=== PATIENT | male | born 1965 | race Native Hawaiian/Other Pacific Islander ===

== ENCOUNTER 2018-02-28 03:58 | Inpatient (IN) | payer BC, OTHER ==
[2018-02-28 04:10] VITALS: BMI 36.0
[2018-02-28] MEDS ORDERED: Albuterol-Ipratrop 3 mg / 0.5 (3 ml) UD IH STA (04:19)
[2018-02-28] MEDS ORDERED: Albuterol 0.083% Inhal Sol (2.5 mg/3 mL) UD INH STA (04:19)
--- NOTE | 2018-02-28 04:24 | ED PDOC ---
Arrival/HPI - General Chief Complaint: Shortness Of Breath Time Seen by Provider: 02/28/18 04:17 Historian: Patient - History of Present Illness Narrative History of Present Illness (Text): 02/28/18 04:28 52 year old male, with a past medical history that includes CHF and hypertension , presents to the emergency department accompanied by complaining of shortness of breath [employer] DESIGN [employer]INE[employer]. Patient is suppose to be taking Amlodipine, Lisinopril , Lasix, and potassium for his heart conditions, but has not taken any of them in over 3 months. Patient also refuses to follow up with outside physicians. Patient's also states he has depression and is not working. Patient states he has had worsening shortness of breath for over a week. Patient also states he is having dysuria, constipation, hemorrhoids, and painful BM. Patient denies any fever, chills, headache, dizziness, cough, abdominal pain, nausea, vomiting, diarrhea, back pain, neck pain, or any other complaint. Time/Duration: Prior to Arrival Symptom Course: Unchanged Quality: Pressure Context: Home Past Medical History - Provider Review Nursing Documentation Reviewed: Yes - Infectious Disease Hx of Infectious Diseases: None - Cardiac Hx Cardiac Disorders: Yes Hx Congestive Heart Failure: Yes Hx Hypertension: Yes - Pulmonary Hx Respiratory Disorders: No - Neurological Hx Neurological Disorder: No - HEENT Hx HEENT Disorder: No - Renal Hx Renal Disorder: No - Endocrine/Metabolic Hx Endocrine Disorders: No Hx Diabetes Mellitus Type 2: Yes - Hematological/Oncological Hx Blood Disorders: No Hx Blood Transfusions: No Hx Blood Transfusion Reaction: No - Integumentary Hx Dermatological Disorder: No - Musculoskeletal/Rheumatological Hx Musculoskeletal Disorders: No Hx Falls: No - Gastrointestinal Hx Gastrointestinal Disorders: No - Genitourinary/Gynecological Hx Genitourinary Disorders: No - Psychiatric Hx Psychophysiologic Disorder: No Hx Anxiety: Yes Hx Substance Use: No - Past Surgical History Past Surgical History: No Previous - Surgical History Hx Cardiac Catheterization: Yes (2 yrs ago) - Anesthesia Hx Anesthesia: No Hx Anesthesia Reactions: No Hx Malignant Hyperthermia: No - Suicidal Assessment Feels Threatened In Home Enviroment: No Family/Social History - Physician Review Nursing Documentation Reviewed: Yes Family/Social History: No Known Family HX Smoking Status: Light Smoker < 10 Cigarettes Daily Hx Alcohol Use: Yes (Socially) Hx Substance Use: No Allergies/Home Meds Allergies/Adverse Reactions: Allergies No Known Allergies Allergy (Verified 08/11/15 04:13) Home Medications: Home Meds Medication Instructions Recorded Confirmed No Known Home Med 02/28/18 02/28/18 Review of Systems - Physician Review All systems were reviewed & negative as marked: Yes - Review of Systems Constitutional: Normal. absent: Fevers, Night Sweats Eyes: Normal ENT: Normal Respiratory: SOB Cardiovascular: Chest Pain Gastrointestinal: Normal, Constipation. absent: Abdominal Pain, Diarrhea, Nausea, Vomiting Genitourinary Male: Dysuria Musculoskeletal: Normal. absent: Back Pain, Neck Pain Skin: Normal Neurological: Normal. absent: Headache, Dizziness Endocrine: Normal Hemo/Lymphatic: Normal Psychiatric: Depression Physical Exam Vital Signs Temp Pulse Resp BP Pulse Ox 02/28/18 06:37 95 H 178/98 H 02/28/18 06:24 97 H 24 173/98 H 100 02/28/18 06:19 184/109 H 02/28/18 06:04 99 H 183/119 H 02/28/18 06:03 108 H 223/115 H 02/28/18 04:38 213/130 H 02/28/18 04:15 24 99 02/28/18 04:00 98.8 F 113 H 22 213/130 H 98 Temperature: Afebrile Blood Pressure: Hypertensive Pulse: Tachycardic Respiratory Rate: Normal Appearance: Positive for: Well-Appearing, Non-Toxic, Comfortable Pain Distress: None Mental Status: Positive for: Alert and Oriented X 3 - Systems Exam Head: Present: Atraumatic, Normocephalic Pupils: Present: PERRL Extroacular Muscles: Present: EOMI Conjunctiva: Present: Normal Mouth: Present: Moist Mucous Membranes Neck: Present: JVD Respiratory/Chest: Present: Rales. No: Accessory Muscle Use Cardiovascular: Present: Other (PMI laterally displaced). No: Murmurs Abdomen: No: Tenderness, Distention, Peritoneal Signs Back: Present: Normal Inspection Upper Extremity: Present: Normal Inspection. No: Cyanosis, Edema Lower Extremity: Present: Normal Inspection. No: Edema Neurological: Present: GCS=15, CN II-XII Intact, Speech Normal Skin: Present: Warm, Dry, Normal Color. No: Rashes Psychiatric: Present: Alert, Oriented x 3, Normal Insight, Normal Concentration Medical Decision Making ED Course and Treatment: 02/28/18 04:46 Impression: 52 year old male presents to the emergency department with shortness of breath Plan: -- Labs -- EKG -- Chest X-ray -- Urinalysis -- Albuterol -- Duoneb -- Lasix -- SOLU-Medrol -- Reassess and disposition Prior Visits: Notes and results from previous visits were reviewed. Progress Notes: 02/28/18 05:09 Chest X-ray reviewed, shows: Cardiomegaly and CHF 02/28/18 05:11 Spoke to the medical receptionist biller and Dr Caterina Vicente who will admit the patient for exacerbation of CHF and noncompliance with his medicine 02/28/18 07:08 EKG: Ordered, reviewed, and independently interpreted the EKG. Rate : 95 BPM Rhythm : NSR Interpretation : possible left atrial enlargement. prolonged QT: 406/510 - Lab Interpretations Lab Results: 02/28/18 04:19 02/28/18 04:14 Lab Results 02/28/18 04:19: Iron 24 L, TIBC 456, % Saturation 5 L 02/28/18 04:19: WBC 9.9 D, RBC 5.18, Hgb 9.6 L, Hct 33.0 L, MCV 63.7 L, MCH 18.5 L, MCHC 29.1 L, RDW 18.4 H, Plt Count 543 H, MPV 9.8, Gran % 75.5 H, Lymph % (Auto) 16.2 L, Rapides % (Auto) 7.0 H, Eos % (Auto) 1.0 L, Baso % (Auto) 0.3, Gran # 7.49 H, Lymph # (Auto) 1.6, Rapides # (Auto) 0.7 H, Eos # (Auto) 0.1, Baso # (Auto) 0.03, Neutrophils % (Manual) 73 H, Band Neutrophils % 2, Lymphocytes % (Manual) 19 L, Monocytes % (Manual) 3, Basophils % (Manual) 3 H, Platelet Evaluation Low, Hypochromasia 2+, Anisocytosis (manual) 1+, Ovalocytes 1+ 02/28/18 04:14: Alcohol, Quantitative < 10 02/28/18 04:14: Sodium 138, Potassium 3.5 L, Chloride 102, Carbon Dioxide 22, Anion Gap 18, BUN 24 H, Creatinine 1.7 H, Est GFR ( Amer) 51, Est GFR ( Non-Af Amer) 43, Random Glucose 166 H, Calcium 8.5, Phosphorus 3.2, Magnesium 2.1, Total Bilirubin 0.8, AST 47, ALT 34, Alkaline Phosphatase 79, Lactate Dehydrogenase 731 H, Total Creatine Kinase 514 H, CK-MB (CK-2) 5.0 H, CK-MB (CK- 2) % 1.0 L, Troponin I 0.03 D, NT-Pro-B Natriuret Pep 3710 H, Total Protein 8.1 , Albumin 4.2, Globulin 3.9, Albumin/Globulin Ratio 1.1 02/28/18 04:14: PT 15.3 H, INR 1.33, D-Dimer, Quantitative 425 H - RAD Interpretation Radiology Orders: 02/28/18 04:19 CHEST PORTABLE [RAD] Stat - Medication Orders Current Medication Orders: Atorvastatin Calcium (Lipitor) 10 mg PO DIN SABA Furosemide (Lasix) 40 mg IVP BID SABA Stop: 03/03/18 23:59 Hydrocortisone (Anusol-Hc) 0 gm KS BID SABA Potassium Chloride (Potassium Chloride Oral Soln) 40 meq PO Q6H SABA Stop: 03/01/18 00:46 Discontinued Medications Albuterol Sulfate (Albuterol 0.083% Inhal Rosemarie (2.5 Mg/3 Ml) Ud) 2.5 mg INH STAT STA Stop: 02/28/18 04:20 Last Admin: 02/28/18 05:01 Dose: 2.5 mg Albuterol/Ipratropium (Duoneb 3 Mg/0.5 Mg (3 Ml) Ud) 3 ml IH STAT STA Stop: 02/28/18 04:20 Last Admin: 02/28/18 04:38 Dose: 3 ml Albuterol/Ipratropium (Duoneb 3 Mg/0.5 Mg (3 Ml) Ud) 3 ml IH Q15M PRN PRN Reason: Shortness of Breath Stop: 02/28/18 06:46 Amlodipine Besylate (Norvasc) 5 mg PO STAT STA Stop: 02/28/18 06:26 Last Admin: 02/28/18 06:37 Dose: 5 mg MAR Pulse and Blood Pressure Document 02/28/18 06:37 SS (Rec: 02/28/18 06:38 SS [id number]) Pulse Pulse Rate (60-90) 95 Blood Pressure Blood Pressure (100/60-150/90) 178/98 Aspirin (Aspirin Chewable) 81 mg PO STAT STA Stop: 02/28/18 06:15 Last Admin: 02/28/18 06:37 Dose: 81 mg Furosemide (Lasix) 40 mg IVP STAT STA Stop: 02/28/18 04:20 Last Admin: 02/28/18 04:38 Dose: 40 mg MAR Blood Pressure Document 02/28/18 04:38 SS (Rec: 02/28/18 04:38 SS [id number]) Blood Pressure Blood Pressure (100/60-150/90) 213/130 IVP Administration Document 02/28/18 04:38 SS (Rec: 02/28/18 04:38 SS [id number]) Charges for Administration # of IVP Administrations 1 Furosemide (Lasix) 20 mg IVP STAT STA Stop: 02/28/18 06:00 Last Admin: 02/28/18 06:19 Dose: 20 mg MAR Blood Pressure Document 02/28/18 06:19 SS (Rec: 02/28/18 06:20 SS [id number]) Blood Pressure Blood Pressure (100/60-150/90) 184/109 IVP Administration Document 02/28/18 06:19 SS (Rec: 02/28/18 06:20 SS [id number]) Charges for Administration # of IVP Administrations 1 Hydralazine HCl (Apresoline) 10 mg IVP STAT SABA Last Admin: 02/28/18 06:04 Dose: 10 mg IVP Administration Document 02/28/18 06:04 SS (Rec: 02/28/18 06:04 SS [id number]) Charges for Administration # of IVP Administrations 1 MAR Pulse and Blood Pressure Document 02/28/18 06:04 SS (Rec: 02/28/18 06:04 SS [id number]) Pulse Pulse Rate (60-90) 99 Blood Pressure Blood Pressure (100/60-150/90) 183/119 Sodium Chloride (Sodium Chloride 0.9%) 500 mls @ 999 mls/hr IV .Q31M STA Stop: 02/28/18 06:19 Last Admin: 02/28/18 06:11 Dose: 999 mls/hr eMAR Start Stop Document 02/28/18 06:11 SS (Rec: 02/28/18 06:11 SS [id number]) Intravenous Solution Start Date 02/28/18 Start Time 06:11 End Date 02/28/18 End time 06:42 Total Infusion Time 31 Methylprednisolone (Solu-Medrol) 125 mg IVP STAT STA Stop: 02/28/18 04:20 Last Admin: 02/28/18 04:38 Dose: 125 mg IVP Administration Document 02/28/18 04:38 SS (Rec: 02/28/18 04:38 SS [id number]) Charges for Administration # of IVP Administrations 1 Metoprolol Tartrate (Lopressor) 5 mg IVP STAT STA Stop: 02/28/18 05:44 Last Admin: 02/28/18 06:03 Dose: 5 mg IVP Administration Document 02/28/18 06:03 SS (Rec: 02/28/18 06:04 SS [id number]) Charges for Administration # of IVP Administrations 1 MAR Pulse and Blood Pressure Document 02/28/18 06:03 SS (Rec: 02/28/18 06:04 SS [id number]) Pulse Pulse Rate (60-90) 108 Blood Pressure Blood Pressure (100/60-150/90) 223/115 Polyethylene Glycol (Miralax) 17 gm PO STAT STA Stop: 02/28/18 06:25 Potassium Chloride (K-Dur 20 Meq Er Tab) 20 meq PO STAT STA Stop: 02/28/18 06:00 Last Admin: 02/28/18 06:11 Dose: 20 meq Tamsulosin HCl (Flomax) 0.4 mg PO STAT STA Stop: 02/28/18 06:24 Last Admin: 02/28/18 06:37 Dose: 0.4 mg - Larissaibe Statement The provider has reviewed the documentation as recorded by the Larissaibfarhana Alvarado All medical record entries made by the Larissaibfarhana were at my direction and personally dictated by me. I have reviewed the chart and agree that the record accurately reflects my personal performance of the history, physical exam, medical decision making, and the department course for this patient. I have also personally directed, reviewed, and agree with the discharge instructions and disposition. Disposition/Present on Arrival - Present on Arrival Any Indicators Present on Arrival: No History of DVT/PE: No History of Uncontrolled Diabetes: No Urinary Catheter: No History of Decub. Ulcer: No History Surgical Site Infection Following: None - Disposition Have Diagnosis and Disposition been Completed?: Yes Diagnosis: Congestive heart failure (CHF), Non-compliance, Dysuria, Rectal pain, chronic, Constipation Disposition: HOSPITALIZED Disposition Time: 05:00 Patient Plan: Admission, Telemetry Patient Problems: Current Active Problems Problem Status Onset Congestive heart failure (CHF) Acute Non-compliance Acute Dysuria Acute Rectal pain, chronic Acute Constipation Acute Condition: FAIR
[2018-02-28 04:34] LABS: BASO # 0.03 K/mm3 (0.0-2.0); BASO % 0.3 % (0.0-3.0); EOS # 0.1 (0.0-0.7); GRAN # 7.49 (1.4-6.5); GRAN % 75.5 % (50.0-68.0); HEMOGLOBIN 9.6 g/dL (14.0-18.0); LYMPH # 1.6 (1.2-3.4); LYMPH % 16.2 % (22.0-35.0); MEAN CELL VOLUME 63.7 fl (80.0-105.0); MEAN CORPUSCULAR HEMOGLOBIN 18.5 pg (25.0-35.0); MEAN CORPUSCULAR HGB CONC 29.1 g/dl (31.0-37.0); MEAN PLATELET VOLUME 9.8 fl (7.0-11.0); MONO # 0.7 (0.1-0.6); PLATELET COUNT 543 10^3/uL (120.0-450.0); RBC 5.18 10^6/uL (3.5-6.1); RED CELL DISTRIBUTION WIDTH 18.4 % (11.5-14.5); WHITE BLOOD COUNT 9.9 10^3/ul (4.5-11.0)
[2018-02-28 04:59] LABS: ALB/GLOB RATIO 1.1 (1.1-1.8); ALBUMIN 4.2 g/dL (3.0-4.8); CALCIUM 8.5 mg/dL (8.4-10.5)
[2018-02-28 05:05] LABS: INR 1.33; PROTHROMBIN TIME 15.3 SECONDS (9.4-12.5)
[2018-02-28 05:12] LABS: PH,URINE 6.5 (4.7-8.0); URINE BILIRUBIN NEGATIVE (NEGATIVE); URINE BLOOD TRACE-INTACT (NEGATIVE); URINE GLUCOSE (UA) NEGATIVE (NEGATIVE); URINE LEUKOCYTE ESTERASE NEGATIVE Leu/uL (NEGATIVE); URINE PROTEIN 100 mg/dL (<30 mg/dL); URINE UROBILINOGEN 0.2 E.U./dL (<1 E.U./dL)
[2018-02-28 05:18] LABS: URINE APPEARANCE CLEAR (CLEAR); URINE COLOR YELLOW (YELLOW)
[2018-02-28 05:24] LABS: TROPONIN I 0.03 ng/mL
[2018-02-28 05:28] LABS: URINE EPITHELIAL CELLS 0 - 2 /hpf (0-5); URINE RBC 0 - 2 /hpf (0-2); URINE WBC 0 - 2 /hpf (0-6)
[2018-02-28] MEDS ORDERED: Metoprolol 1 mg/ml Inj IVP STA (05:43)
[2018-02-28] MEDS ORDERED: Sodium Chloride 0.9% 500 ML IV STA (05:49)
[2018-02-28] MEDS ORDERED: Metoprolol 1 mg/ml Inj IVP ONE (05:49)
[2018-02-28] MEDS ORDERED: Potassium Chloride 20 mEq ER Tab PO STA (05:59)
[2018-02-28 06:06] LABS: BARBITURATES, UR NEGATIVE (NEGATIVE); BENZODIAZEPINES, UR NEGATIVE (NEGATIVE); OPIATES, UR NEGATIVE (NEGATIVE); PHENCYCLIDINE, UR NEGATIVE (NEGATIVE)
[2018-02-28] MEDS ORDERED: Albuterol-Ipratrop 3 mg / 0.5 (3 ml) UD IH PRN (06:14)
[2018-02-28] MEDS ORDERED: POLYETHYLENE GLYCOL 3350 17 GM/Dose PACKET PO STA (06:24)
[2018-02-28] MEDS: Potassium Chloride 40 mEq/30 ml LIQ UD PO SCH ×3 (06:45→17:44)
[2018-02-28 06:52] LABS: IRON 24 ug/dL (45-180)
[2018-02-28 06:56] LABS: BAND 2 % (0-2); BASOPHIL 3 % (0.0-1.0); HYPOCHROMIA 2+; LYMPHOCYTE 19 % (22.0-35.0); MONOCYTE 3 % (1.0-6.0); NEUTROPHIL 73 % (50.0-70.0); PLATELET ESTIMATE LOW (NORMAL)
[2018-02-28 06:57] LABS: ANISOCYTOSIS 1+; OVALOCYTES 1+
[2018-02-28 07:02] LABS: % IRON SATURATION 5 % (20-55); TOTAL IRON BINDING CAPACITY 456 ug/dL (261-462)
--- NOTE | 2018-02-28 07:44 | CP.PCM.HP ---
<Kasi Wang - Last Filed: 02/28/18 09:12> History of Present Illness - History of Present Illness History of Present Illness: Kasi Wang, PGY1, Internal Medicine Resident, H&P for Dr Vicente CC: Shortness of breath for 4 months 52 y/o male with PMH HTN, CHF,TIA, depression presents to ED for 4 month h/o shortness of breath at rest and with exertion. Patient denies diaphoresis, palpitations, nausea, vomiting, syncope, abdominal pain, leg swelling. He also reports PND and orthopnea. Patient did not his a doctor and non compliant with his medications for a long time. Patient admits to having chronic constipation for many months, experience very hard stool with bleeding per rectum and painful hemorrhoids for a long time but never seek medical advice. Patient admit to stimulant drug abuse 4 month ago but he quit and and still have withdrawal symptoms of anxiety, restlessness, irritability. Patient has been at home depressed, with very limited physical activity at home and feels general fatigue and muscle weakness. He also stated that he has difficulty urination with hesitation and burning sensation and difficulty to initiate urination. Denies chills, headache, calf pain, dizziness, visual changes, sick contacts, recent travel. 12 point ROS performed and negative other than stated above. In ED: hypertensive 213/113, trop 0.03, BNP 3710, CK 514. CXR shows cardiomegaly. given lasix 40 mg IV x1, Solu-medrol 125, Morphine 4mg EKG shows S tachy @112, QTc 477, with LA enlargement PMH: HTN, CHF, TIA PSH: Med: denied taking any neds All: NKDA FH: SH: heavy smoker 1ppd x 20 years. h/o methamphetamine use. denied alcohol use. Lives with . Present on Admission - Present on Admission Any Indicators Present on Admission: No Review of Systems - Constitutional Constitutional: Anorexia, Daytime Sleepiness, Snoring, Weakness. absent: Headache - EENT Eyes: Diplopia, Irritation, Loss of Peripheral Vision Ears: absent: Ear Pain, Dizziness Nose/Mouth/Throat: absent: Nasal Congestion, Nasal Trauma, Dry Mouth, Dysphagia - Cardiovascular Cardiovascular: Orthopnea, Paroxysmal Nocturnal Dyspnea. absent: Diaphoresis, Leg Edema, Pedal Edema - Respiratory Respiratory: Cough, Dyspnea on Exertion. absent: Dyspnea, Chest Congestion - Gastrointestinal Gastrointestinal: Constipation, Hematochezia, Temesmus. absent: Coffee Ground Emesis - Genitourinary Genitourinary: Change in Urinary Stream, Difficulty Urinating, Dysuria, Urinary Frequency, Urinary Hesitance, Urinary Urgency, Voiding Freq/Small Amts - Musculoskeletal Musculoskeletal: Atrophy, Muscle Weakness, Myalgias - Integumentary Integumentary: absent: Hirsutism, Lesions, Rash - Neurological Neurological: absent: Burning Sensations, Dizziness, Numbness, Radicular Pain, Syncope, Tingling, Tremor - Psychiatric Psychiatric: Anhedonia, Anxiety, Depression, Difficulty Concentrating, Hopelessness - Endocrine Endocrine: absent: Polydipsia, Polyphagia - Hematologic/Lymphatic Hematologic: Easy Bleeding, Easy Bruising Past Patient History - Infectious Disease Hx of Infectious Diseases: None - Past Social History Smoking Status: Light Smoker < 10 Cigarettes Daily Alcohol: None Drugs: Methamphetamine Home Situation {Lives}: With Family - CARDIAC Hx Cardiac Disorders: Yes Hx Congestive Heart Failure: Yes Hx Hypertension: Yes - PULMONARY Hx Respiratory Disorders: No - NEUROLOGICAL Hx Neurological Disorder: No - HEENT Hx HEENT Problems: No - RENAL Hx Chronic Kidney Disease: No - ENDOCRINE/METABOLIC Hx Endocrine Disorders: No Hx Diabetes Mellitus Type 2: Yes - HEMATOLOGICAL/ONCOLOGICAL Hx Blood Disorders: No Hx Blood Transfusions: No Hx Blood Transfusion Reaction: No - INTEGUMENTARY Hx Dermatological Problems: No - MUSCULOSKELETAL/RHEUMATOLOGICAL Hx Musculoskeletal Disorders: No Hx Falls: No - GASTROINTESTINAL Hx Gastrointestinal Disorders: No - GENITOURINARY/GYNECOLOGICAL Hx Genitourinary Disorders: No - PSYCHIATRIC Hx Psychophysiologic Disorder: No Hx Anxiety: Yes Hx Substance Use: No - SURGICAL HISTORY Hx Cardiac Catheterization: Yes (2 yrs ago) - ANESTHESIA Hx Anesthesia: No Hx Anesthesia Reactions: No Hx Malignant Hyperthermia: No Meds Allergies/Adverse Reactions: Allergies Allergy/AdvReac Type Severity Reaction Status Date / Time No Known Allergies Allergy Verified 08/11/15 04:13 Physical Exam - Constitutional Appears: Non-toxic, No Acute Distress - Head Exam Head Exam: ATRAUMATIC, NORMAL INSPECTION, NORMOCEPHALIC - Eye Exam Eye Exam: EOMI, Normal appearance, PERRL Pupil Exam: NORMAL ACCOMODATION, PERRL - ENT Exam ENT Exam: Mucous Membranes Moist, Normal Exam - Neck Exam Neck exam: Positive for: Normal Inspection - Respiratory Exam Respiratory Exam: Clear to Auscultation Bilateral, NORMAL BREATHING PATTERN - Cardiovascular Exam Cardiovascular Exam: Tachycardia, REGULAR RHYTHM, +S1, +S2 - GI/Abdominal Exam GI & Abdominal Exam: Normal Bowel Sounds, Soft. absent: Organomegaly, Pulsatile Mass, Tenderness - Rectal Exam Rectal Exam: Deferred (patient anxious at this time) - Extremities Exam Extremities exam: Positive for: normal inspection, pedal pulses present. Negative for: calf tenderness, pedal edema, tenderness - Back Exam Back exam: NORMAL INSPECTION - Neurological Exam Neurological exam: Alert, CN II-XII Intact, Oriented x3, Reflexes Normal - Skin Skin Exam: Dry, Intact, Normal Color, Warm Results - Vital Signs Recent Vital Signs: Last Vital Signs Temp 98.8 F 02/28/18 04:00 Pulse 95 H 02/28/18 06:37 Resp 24 02/28/18 06:24 BP 178/98 H 02/28/18 06:37 Pulse Ox 100 02/28/18 06:24 - Labs Result Diagrams: 02/28/18 07:50 02/28/18 07:50 Labs: Laboratory Results - last 24 hr 02/28/18 02/28/18 04:55 04:55 Urine Color Yellow Urine Appearance Clear Urine pH 6.5 Ur Specific Sherwood 1.020 Urine Protein 100 H Urine Glucose (UA) Negative Urine Ketones Negative Urine Blood Trace-intact H Urine Nitrate Negative Urine Bilirubin Negative Urine Urobilinogen 0.2 Ur Leukocyte Esterase Negative Urine RBC 0 - 2 Urine WBC 0 - 2 Ur Epithelial Cells 0 - 2 Urine Opiates Screen Negative Urine Methadone Screen Negative Ur Barbiturates Screen Negative Ur Phencyclidine Scrn Negative Ur Amphetamines Screen Negative U Benzodiazepines Scrn Negative U Oth Cocaine Metabols Negative U Cannabinoids Screen Positive H - EKG Data EKG Interpreted by: ER Physician EKG shows normal: Sinus rhythm, QRS complexes Rate: Tachycardia Assessment & Plan - Assessment and Plan (Free Text) Assessment: 52 y/o male with PMH HTN, CHF,TIA, depression admitted for 4 month h/o shortness of breath at rest and with exertion. In ED found to be hypertensive 213/113, trop 0.03, BNP 3710, CK 514. CXR shows cardiomegaly. EKG shows S tachy @112, QTc 477, with LA enlargement. Admitted for CHF exacerbation. Plan: 1) CHF EXACERBATION -EKG: shows S tachy @112, QTc 477, with LA enlargement -Trop 0.03 x1 will trend -BNP 3710 -CK 514 -CXR shows cardiomegaly -Duoneb given. then prn -Solu-medrol 125 given -Lasix 40 mg IVP given. will give 40 mg BID IVP -cardio cnsulted -Echo (2015) EF 30% -Echo ordered -HbA1c order -O2 NC prn -I&O. daily weight 2) HTN urgency -BP 213/113 -Medication non compliance -Monitor BP in Tele -Hold metoprolol for CHF -Norvasc 5 mg -Continue monitor BP and adjust meds accordingly -ASA 81 -Lipitor 10 -Lipid panel ordered 3)Chronic constipation/hemorrhoid -H/O painful, bleeding hemorrhoids associated with chronic constipation -Rectal exam deferred, patient anxious at time of exam -Miralax -Anusole ointment - 4)Dysurea/ urinary symptoms -Bladder scan -UA -U Cx -Flomax 0.4 mg given daily 5)History of substance abuse/ Depression -h/o methamphetamine use. experiencing withdrawal symptoms. -Severe depression -UA -Urine tox -Psych consulted, recs appreciated DVT ppx SCD Fall precautions. muscle weakness Physical therapy eval/treat. muscle weakness, deconditioning Heart healthy diet Case discussed and reviewed with Dr Jules Wang D.O PGY-1 - Date & Time Date: 02/28/18 Time: 05:30 <Delia Vicente - Last Filed: 03/01/18 07:05> Results - Vital Signs Recent Vital Signs: Last Vital Signs Temp 97.7 F 03/01/18 06:00 Pulse 87 03/01/18 06:00 Resp 19 03/01/18 06:00 BP 127/75 03/01/18 06:00 Pulse Ox 95 03/01/18 06:00 - Labs Result Diagrams: 02/28/18 07:50 02/28/18 07:50 Labs: Laboratory Results - last 24 hr 02/28/18 02/28/18 02/28/18 06:00 07:50 07:50 WBC RBC Hgb Hct MCV MCH MCHC RDW Plt Count MPV Gran % Lymph % (Auto) Lawrence % (Auto) Eos % (Auto) Baso % (Auto) Gran # Lymph # (Auto) Lawrence # (Auto) Eos # (Auto) Baso # (Auto) Retic Count 1.94 H Sodium 141 Potassium 3.2 L Chloride 102 Carbon Dioxide 23 Anion Gap 19 BUN 23 H Creatinine 2.1 H Est GFR ( Amer) 40 Est GFR (Non-Af Amer) 33 Random Glucose 142 H Hemoglobin A1c 6.1 Calcium 8.9 Phosphorus 2.7 Magnesium 2.0 Total Bilirubin 1.1 AST 48 ALT 25 Alkaline Phosphatase 90 Troponin I 0.04 D Total Protein 9.4 H Albumin 4.9 H Globulin 4.5 Albumin/Globulin Ratio 1.1 02/28/18 07:50 WBC 11.4 H RBC 5.68 Hgb 10.7 L Hct 35.9 L MCV 63.2 L MCH 18.8 L MCHC 29.8 L RDW 18.6 H Plt Count 561 H MPV 9.7 Gran % 94.1 H Lymph % (Auto) 5.0 L Lawrence % (Auto) 0.6 L Eos % (Auto) 0.0 L Baso % (Auto) 0.3 Gran # 10.73 H Lymph # (Auto) 0.6 L Lawrence # (Auto) 0.1 Eos # (Auto) 0.0 Baso # (Auto) 0.03 Retic Count Sodium Potassium Chloride Carbon Dioxide Anion Gap BUN Creatinine Est GFR ( Amer) Est GFR (Non-Af Amer) Random Glucose Hemoglobin A1c Calcium Phosphorus Magnesium Total Bilirubin AST ALT Alkaline Phosphatase Troponin I Total Protein Albumin Globulin Albumin/Globulin Ratio Attending/Attestation - Attestation I have personally seen and examined this patient.: Yes I have fully participated in the care of the patient.: Yes I have reviewed all pertinent clinical information: Yes
[2018-02-28 08:01] LABS: BASO # 0.03 K/mm3 (0.0-2.0); BASO % 0.3 % (0.0-3.0); GRAN # 10.73 (1.4-6.5); GRAN % 94.1 % (50.0-68.0); HEMOGLOBIN 10.7 g/dL (14.0-18.0); LYMPH # 0.6 (1.2-3.4); MEAN CELL VOLUME 63.2 fl (80.0-105.0); MEAN CORPUSCULAR HEMOGLOBIN 18.8 pg (25.0-35.0); MEAN CORPUSCULAR HGB CONC 29.8 g/dl (31.0-37.0); MEAN PLATELET VOLUME 9.7 fl (7.0-11.0); MONO # 0.1 (0.1-0.6); MONO % 0.6 % (1.0-6.0); RBC 5.68 10^6/uL (3.5-6.1); RED CELL DISTRIBUTION WIDTH 18.6 % (11.5-14.5); WHITE BLOOD COUNT 11.4 10^3/ul (4.5-11.0)
[2018-02-28 08:09] LABS: ALB/GLOB RATIO 1.1 (1.1-1.8); ALBUMIN 4.9 g/dL (3.0-4.8); CALCIUM 8.9 mg/dL (8.4-10.5)
[2018-02-28 08:19] LABS: TROPONIN I 0.04 ng/mL
--- NOTE | 2018-02-28 09:16 | RAD ---
Date of service: 02/28/2018 HISTORY: Dyspnea COMPARISON: 08/11/2015 FINDINGS: LUNGS: No active pulmonary disease. PLEURA: No significant pleural effusion identified, no pneumothorax apparent. CARDIOVASCULAR: Moderate cardiomegaly OSSEOUS STRUCTURES: No significant abnormalities. VISUALIZED UPPER ABDOMEN: Normal. OTHER FINDINGS: None. IMPRESSION: No active disease.
[2018-02-28] MEDS ORDERED: Potassium Chloride 20 mEq ER Tab PO ONE (09:33)
[2018-02-28] MEDS ORDERED: Milrinone 20mg/100ml D5W 100 ML IV PRN (09:36)
--- NOTE | 2018-02-28 09:42 | CP.PCM.PCO ---
<Aristeo Gonzales - Last Filed: 02/28/18 09:37> Subjective - Physician Review Subjective (Free Text): Bela White called for acute agitation at 9:25 am. Per nurse, patient has urinary retention and became acutely agitated when assistance was offered. At that point , patient began to yell and be combative. On response, patient did not want anyone in the room other than his . When confronted patient was now upset that so many people were outside of his room. No psychiatric history was noted per EMR. Ativan 1 mg was ordered for acute agitation. Event was signed out to primary team. <Dominick Knight - Last Filed: 03/01/18 14:08> Attending/Attestation - Attestation I have personally seen and examined this patient.: Yes I have fully participated in the care of the patient.: Yes I have reviewed all pertinent clinical information: Yes
[2018-02-28] MEDS: Digoxin 125 mcg (0.125 mg) Tab PO SCH (10:45)
[2018-02-28] MEDS: Hydrocortisone 2.5% Rectal Cream(30 gm) PR SCH ×2 (10:46→17:43)
[2018-02-28 12:37] LABS: FERRITIN 9.3 ng/mL
--- NOTE | 2018-02-28 12:55 | NM ---
Date of service: 02/28/2018 COMPARISON: 02/28/2018 portable chest TECHNIQUE: 38.4 mCi technetium 99-m DTPA 4.8 mCI technetium 99-m MAA administered intravenously. FINDINGS: VENTILATION COMPONENT: Normal. PERFUSION COMPONENT: Normal. IMPRESSION: Lowprobability ventilation perfusion scan for pulmonary embolism.
--- NOTE | 2018-02-28 12:59 | US ---
HISTORY: Leg pain and swelling. Evaluate for DVT PHYSICIAN(S): You Castle MD. TECHNIQUE: Duplex sonography and color-flow Doppler with graded compression were used to evaluate the deep venous systems of both lower extremities. FINDINGS: The visualized deep venous systems of both lower extremities are sonographically normal and compressible. Normal wave forms and augmentation are seen. There is no sonographic evidence for deep venous thrombosis in the visualized segments of both lower extremities. IMPRESSION: No sonographic evidence for deep venous thrombosis in the visualized segments of both lower extremities.
[2018-02-28] MEDS ORDERED: Pneumococcal 23-Valent Vaccine IM ONE (15:36)
--- NOTE | 2018-02-28 18:53 | CP.PCM.PCO ---
<rAisteo Gonzales - Last Filed: 02/28/18 18:49> Subjective - Physician Review Subjective (Free Text): Nurse contacted me for acute agitation and refusing medications. On assessment, patient stated that he was in pain all over, especially in the left flank and suprapubic area. Patient states that he has been having urinary retention for over a month and needed something to help relieve his urinary retention. On exam , suprapubic tenderness/fullness palpated. 1 mg morphine ordered. Bladder scan showed 331 mL. Heard catheter was placed with 350 mL urine output. <Dominick Knight - Last Filed: 03/01/18 14:08> Attending/Attestation - Attestation I have personally seen and examined this patient.: Yes I have fully participated in the care of the patient.: Yes I have reviewed all pertinent clinical information: Yes
[2018-02-28] MEDS ORDERED: Morphine 2 mg/ml ISec IVP STA (18:54)
--- NOTE | 2018-02-28 19:14 | CON ---
Copied To: Dominick Aceves MD Attending MD: Dominick Aceves MD DATE: 02/28/2018 REASON FOR THE CONSULTATION: Cardiac evaluation, admitted with shortness of breath, decompensated congestive heart failure. BRIEF CLINICAL HISTORY: This is a 52-year-old male with past medical history of dilated cardiomyopathy, nonobstructive coronary artery disease, COPD, renal insufficiency, noncompliance with medication, not taking any medicines for the last 3 months, came into the emergency room with complaint of shortness of breath accompanied by the . is at the bedside. The patient is very much non-cooperative, does not want to give any history, does not want to tell anything, information obtained from the . Though, the patient denies any chest pain with complaint of shortness of breath using 2 to 3 pillows at night, history of orthopnea and PND, no history of pedal edema. PAST MEDICAL HISTORY: Significant for hypertension, documented dilated cardiomyopathy, ejection fraction of 25% on previous cardiac workup. PREVIOUS CARDIAC WORKUP: As follows: The patient had a cardiac catheterization on 06/29/2014 at [facility] ([facility]3] by Dr. Nye, LAD moderate disease 60% to 70%, ejection fraction 25%. The patient had a last echo on 08/11/[address] Umberto Dawn and at that time, the patient had ejection fraction calculated 26%, RV systolic pressure of 52, moderate severe tricuspid regurgitation, moderate pulmonary hypertension reported and mild mitral regurgitation reported. History of cardiac catheterization on 06/29/2014 that is mid LAD disease 60% to 70%, ejection fraction 25% reported. At that time, catheterization done by Dr. Nye on 06/25/2014, history of chronic renal insufficiency, baseline creatinine around 2. The patient had nuclear stress test on , negative myocardial perfusion study, ejection fraction 43%, no ischemia. CURRENT MEDICATIONS: None, the patient is not taking any medicine. REVIEW OF SYSTEMS: As per HPI. PHYSICAL EXAMINATION: VITAL SIGNS: Height of the patient is 5 feet 7 inches, weight of the patient 230 pounds, body mass index 36 kg/m2. Rest of the examination, temperature afebrile, heart rate 86, blood pressure 184/95. HEENT: PERRLA. Extraocular muscles intact. NECK: Supple. No carotid bruits or thyromegaly. CHEST: Clear to auscultation. HEART: S1, S2 regular. ABDOMEN: Soft. EXTREMITIES: Clubbing and cyanosis negative. LABORATORY DATA: Blood workup: WBC 11.5, hemoglobin 10. , hematocrit 35.9, platelet count 561. Chemistry shows sodium 141, potassium 3.2, chloride 102, carbon dioxide 23, anion gap of 19, BUN 23, creatinine 2.1, troponin is 0.04, BNP 3710. EKG shows normal sinus, no acute ST-T changes noted. Chest x-ray, mild congestion. IMPRESSION: A 52-year-old male with past medical history significant for documented dilated cardiomyopathy, ejection fraction of 25% as of on 2013 to 2014, recent stress test in 07/2015, negative ischemia, ejection fraction of 40%, history of cardiac catheterization on 06/29/2014, nonobstructive coronary artery disease, noncompliance with medications, history of chronic kidney disease, not taking medicines for the last 3 months. RECOMMENDATIONS: We will start Lasix, Coreg, and digoxin Saturday, Saturday, and Saturday, low dose and also will get 24 to 48 hours IV Primacor and so we can push more Lasix. We will follow with you. The patient will get benefit from Primacor as increased inotropy as well as renal sufficiency as well as pulmonary hypertension. We will get echo also. Thank you, Dr. Patel, for providing us the opportunity in taking care of the patient, Bruce Dickinson. Dominick Aceves MD
--- NOTE | 2018-02-28 19:55 | CARD ---
APPROVED REPORT Date of service: 02/28/2018 EXAM: Two-dimensional and M-mode echocardiogram with Doppler and color Doppler. INDICATION CHF EXACERBATION 2D DIMENSIONS Left Atrium (2D)5.8 (1.6-4.0cm)IVSd1.4 (0.7-1.1cm) LVDd5.1 (3.9-5.9cm)PWd1.4 (0.7-1.1cm) LVDs4.1 (2.5-4.0cm)FS (%) 19.6 % LVEF (%)40.2 (>50%) M-Mode DIMENSIONS Aortic Root3.40 (2.2-3.7cm)Aortic Cusp Exc.1.70 (1.5-2.0cm) Aortic Valve AoV Peak Iruashpl757.0cm/Carmella Peak GR.11mmHgAI P 1/2 [id number] Mitral Valve MV E Khmgrqyu05.6cm/sMV A Hqclyfjy95.2cm/sE/A ratio1.1 TDI Lateral E' Peak V6.24cm/sMedial E' Peak V3.90cm/sE/Lateral E'11.0 E/Medial E'17.6 Pulmonary Valve PV Peak Pehamyjw29.7cm/sPV Peak Grad.2mmHg Tricuspid Valve TR Peak Jxrjmhxt885ip/sRAP [id number] Peak Gr.52mmHg [id number] LEFT VENTRICLE The left ventricle is normal size. There is mild concentric left ventricular hypertrophy. The systolic function is moderately impaired. There is global hypokinesis of the left ventricle. Transmitral Doppler flow pattern is Grade I-abnormal relaxation pattern. RIGHT VENTRICLE The right ventricle is normal size. There is normal right ventricular wall thickness. The right ventricular systolic function is normal. ATRIA The left atrium is moderately dilated. The right atrium is mildly dilated. AORTIC VALVE The aortic valve is mildly thickened. There is mild to moderate aortic regurgitation. There is no aortic valvular stenosis. MITRAL VALVE The mitral valve is mildly thickened. Mitral regurgitation is mild to moderate. There is no mitral valve stenosis. TRICUSPID VALVE The tricuspid valve is normal in structure. There is mild tricuspid regurgitation. There is moderate to severe pulmonary hypertension. PULMONIC VALVE The pulmonary valve is normal in structure. There is no pulmonic valvular regurgitation. GREAT VESSELS The aortic root is normal in size. The IVC is normal in size and collapses >50% with inspiration. <Conclusion> The left ventricle is normal size. There is mild concentric left ventricular hypertrophy. The systolic function is moderately impaired. There is global hypokinesis of the left ventricle. Transmitral Doppler flow pattern is Grade I-abnormal relaxation pattern. There is mild to moderate aortic regurgitation. Mitral regurgitation is mild to moderate. There is mild tricuspid regurgitation. There is moderate to severe pulmonary hypertension.
--- NOTE | 2018-02-28 20:57 | CARD ---
APPROVED REPORT Date of service: 02/28/2018 EKG Measurement Heart [id number] <Conclusion> Normal sinus rhythm Possible Left atrial enlargement Prolonged QT Abnormal ECG
--- NOTE | 2018-02-28 20:58 | CARD ---
APPROVED REPORT Date of service: 02/28/2018 EKG Measurement Heart [id number] MD [id number] <Conclusion> Poor data quality, interpretation may be adversely affected Sinus tachycardia Possible Left atrial enlargement Borderline ECG
[2018-02-28] MEDS ORDERED: Hydrocortisone 2.5% Rectal Cream(30 gm) PR STA (21:07)
[2018-02-28] MEDS ORDERED: Magnesium Citrate Oral SOL (300 ml) PO ONE (21:07)
[2018-03-01] MEDS: Potassium Chloride 40 mEq/30 ml LIQ UD PO SCH (00:05)
--- NOTE | 2018-03-01 07:37 | CP.PCM.PN ---
<Terence Mendez - Last Filed: 03/01/18 10:02> Subjective - Date & Time of Evaluation Date of Evaluation: 03/01/18 Time of Evaluation: 07:36 - Subjective Subjective: Terence Mendez DO PGY1 Internal Medicine Health Information Director - Hospital Progress Note Pt. seen this AM at bedside. Pt. had code avila called overnight; as well as during the day. He is much more calm today that he is with his at bedside. Pt. is moving bowels well at this time; urinating well at this time. 12 system ROS otherwise unremarkable. Objective - Vital Signs/Intake and Output Vital Signs (last 24 hours): Temp Pulse Resp BP Pulse Ox 97.7 F 87 19 127/75 95 03/01/18 06:00 03/01/18 06:00 03/01/18 06:00 03/01/18 06:00 03/01/18 06:00 Intake and Output: 03/01/18 03/01/18 06:59 18:59 Intake Total 1182 Output Total 800 Balance 382 - Medications Medications: Current Medications Atorvastatin Calcium (Lipitor) 10 mg PO DIN [facility] Last Admin: 02/28/18 17:44 Dose: Not Given Carvedilol (Coreg) 12.5 mg PO BID [facility] Last Admin: 02/28/18 17:44 Dose: Not Given Digoxin (Digoxin) 0.125 mg PO MWF [facility] Last Admin: 02/28/18 10:45 Dose: 0.125 mg Furosemide (Lasix) 40 mg IVP 0800,1400 [facility] Stop: 03/03/18 23:59 Last Admin: 02/28/18 15:08 Dose: Not Given Hydralazine HCl (Apresoline) 10 mg PO QID PRN PRN Reason: for sbp >170 Hydralazine HCl (Apresoline) 25 mg PO BID [facility] Hydrocortisone (Anusol-Hc) 0 gm OH BID [facility] Last Admin: 02/28/18 17:43 Dose: Not Given Milrinone Lactate/Dextrose (Primacor 20mg/100ml D5w) 100 mls @ 6.26 mls/hr IV .[id number] PRN; Protocol; 0.2 MCG/KG/MIN PRN Reason: TITRATE PER MD ORDER Stop: 03/03/18 07:00 Last Admin: 02/28/18 13:13 Dose: 0.2 mcg/kg/min, 6.26 mls/hr Lisinopril (Zestril) 5 mg PO DAILY [facility] Last Admin: 02/28/18 10:45 Dose: 5 mg Spironolactone (Aldactone) 25 mg PO DAILY [facility] Last Admin: 02/28/18 10:45 Dose: 25 mg - Labs Labs: 02/28/18 07:50 02/28/18 07:50 PT 15.3 SECONDS (9.4-12.5) H 02/28/18 04:14 INR 1.33 02/28/18 04:14 Physical Exam - Constitutional Appears: Non-toxic, No Acute Distress - Head Exam Head Exam: ATRAUMATIC, NORMAL INSPECTION, NORMOCEPHALIC - Eye Exam Eye Exam: EOMI, Normal appearance, PERRL Pupil Exam: NORMAL ACCOMODATION, PERRL - ENT Exam ENT Exam: Mucous Membranes Moist, Normal Exam - Neck Exam Neck exam: Positive for: Normal Inspection - Respiratory Exam Respiratory Exam: Clear to Auscultation Bilateral, NORMAL BREATHING PATTERN - Cardiovascular Exam Cardiovascular Exam: Tachycardia, REGULAR RHYTHM, +S1, +S2 - GI/Abdominal Exam GI & Abdominal Exam: Normal Bowel Sounds, Soft. absent: Organomegaly, Pulsatile Mass, Tenderness - Rectal Exam Rectal Exam: Deferred (patient anxious at this time) - Extremities Exam Extremities exam: Positive for: normal inspection, pedal pulses present. Negative for: calf tenderness, pedal edema, tenderness - Back Exam Back exam: NORMAL INSPECTION - Neurological Exam Neurological exam: Alert, CN II-XII Intact, Oriented x3, Reflexes Normal - Skin Skin Exam: Dry, Intact, Normal Color, Warm Assessment and Plan - Assessment and Plan (Free Text) Assessment: 52 y/o male with PMH HTN, CHF,TIA, depression admitted for 4 month h/o shortness of breath at rest and with exertion. In ED found to be hypertensive 213/113, trop 0.03, BNP 3710, CK 514. CXR shows cardiomegaly. EKG shows S tachy @112, QTc 477, with LA enlargement. Admitted for CHF exacerbation. Plan: CHF EXACERBATION - Appears to be euvolemic at this time; VSS; no tele events overnight. - C/w digoxin 0.125 PO MWF - Digoxin level <0.4 - Hold lasix; his Cr has bumped up slightly - Will obtain follow up CXR -Troponins negative -Duoneb PRN -cardio cnsulted -Repeated Echo showed EF of 40% -O2 NC prn -IO: -2800ml /Last 24H -IO: -4000ml since admit HTN urgency -BP 213/113 on admission -Medication non compliance -Normotensive in last 24H -C/w Hydralazine 25mg BID/ 10mg QID PRN -C/w Milrinone drip DAVINA -Cr. increased from 2.1 to 3.8 in last 24H -Most likely 2/2 Diuresis; however patient was exhibiting signs of urinary retention -Holding Lasix 40 BID -Holding Spironolactone 25 QD -Lisinopril 5 QD -Bladder scan showed 331 mL. Heard catheter was placed with 350 mL urine output Chronic constipation/hemorrhoid -H/O painful, bleeding hemorrhoids associated with chronic constipation -Rectal exam deferred, patient anxious at time of exam -Miralax -Anusole ointment History of substance abuse/ Depression -h/o methamphetamine use. experiencing withdrawal symptoms. -Severe depression -Urine tox - Cannabinoid + -Psych consulted, recs appreciated DVT ppx SCD Dispo: Inpatient admission for continued management / treatment of CHF, and urinary retention Patient seen, examined, and discussed at great length w/ attending physician Dominick Rolon DO PGY1 - Internal Medicine Health Information Director - Pager [phone] <Dominick Knight - Last Filed: 03/01/18 14:19> Objective - Vital Signs/Intake and Output Vital Signs (last 24 hours): Temp Pulse Resp BP Pulse Ox 97.1 F L 75 21 131/78 95 03/01/18 12:00 03/01/18 12:00 03/01/18 12:00 03/01/18 12:00 03/01/18 06:00 Intake and Output: 03/01/18 03/01/18 06:59 18:59 Intake Total 1182 Output Total 800 Balance 382 - Medications Medications: Current Medications Atorvastatin Calcium (Lipitor) 10 mg PO DIN [facility] Last Admin: 02/28/18 17:44 Dose: Not Given Carvedilol (Coreg) 12.5 mg PO BID [facility] Last Admin: 03/01/18 10:23 Dose: 12.5 mg Digoxin (Digoxin) 0.125 mg PO F [facility] Last Admin: 02/28/18 10:45 Dose: 0.125 mg Finasteride (Proscar) 5 mg PO DAILY [facility] Last Admin: 03/01/18 13:12 Dose: 5 mg Fluoxetine HCl (Prozac) 10 mg PO DAILY [facility] Last Admin: 03/01/18 13:12 Dose: 10 mg Furosemide (Lasix) 40 mg IVP 0800,1400 [facility] Stop: 03/03/18 23:59 Last Admin: 02/28/18 15:08 Dose: Not Given Hydralazine HCl (Apresoline) 10 mg PO QID PRN PRN Reason: for sbp >170 Hydralazine HCl (Apresoline) 25 mg PO BID [facility] Last Admin: 03/01/18 10:22 Dose: 25 mg Hydrocortisone (Anusol-Hc) 0 gm OH BID [facility] Last Admin: 03/01/18 10:23 Dose: Not Given Milrinone Lactate/Dextrose (Primacor 20mg/100ml D5w) 100 mls @ 6.26 mls/hr IV .[id number] PRN; Protocol; 0.2 MCG/KG/MIN PRN Reason: TITRATE PER MD ORDER Stop: 03/03/18 07:00 Last Admin: 02/28/18 13:13 Dose: 0.2 mcg/kg/min, 6.26 mls/hr Lisinopril (Zestril) 5 mg PO DAILY [facility] Last Admin: 02/28/18 10:45 Dose: 5 mg Lorazepam (Ativan) 0.5 mg PO Q6 PRN; Protocol PRN Reason: Anxiety Pantoprazole Sodium (Protonix Ec Tab) 40 mg PO 0600 [facility] Spironolactone (Aldactone) 25 mg PO DAILY [facility] Last Admin: 02/28/18 10:45 Dose: 25 mg Tamsulosin HCl (Flomax) 0.4 mg PO DAILY [facility] Last Admin: 03/01/18 13:12 Dose: 0.4 mg - Labs Labs: 03/01/18 07:50 03/01/18 07:50 PT 15.3 SECONDS (9.4-12.5) H 02/28/18 04:14 INR 1.33 02/28/18 04:14 Attending/Attestation - Attestation I have personally seen and examined this patient.: Yes I have fully participated in the care of the patient.: Yes I have reviewed all pertinent clinical information, including history, physical exam and plan: Yes Notes (Text): 03/01/18 14:12 Medical record note made by the resident after discussion with my direction and input after the patient was personally seen and examined by me 52 y/o male with PMH HTN, CHF with systolic dysfunction, depression, drug abuse and non compliance with medication was admitted with H/O shortness of breath at rest and with exertion. In ED found to be hypertensive 213/113, trop 0.03, BNP 3710, D dimer was elevated.Patient creatinin was 1.7.Venous doppler was negative for DVT and V /Q scan is low probability for PE.Patient was started on IV lasix, and milrinone infusion for CHF.He had good diuresis yesterday.Dyspnea is improved but patient has developed acute renal failure due to Over diuresis.We will hold lasix/lisinopril and spironolactone.We will get Nephrology consult.Echo was reviewed , has EF 40% and moderate to severe Pulmonary HTN. Prognosis is guarded due to non compliance and ongoing drug abuse.
[2018-03-01 08:23] LABS: ALB/GLOB RATIO 1.1 (1.1-1.8); ALBUMIN 4.2 g/dL (3.0-4.8); CALCIUM 8.9 mg/dL (8.4-10.5)
[2018-03-01 08:26] LABS: BASO # 0.01 K/mm3 (0.0-2.0); BASO % 0.1 % (0.0-3.0); GRAN # 16.62 (1.4-6.5); GRAN % 88.9 % (50.0-68.0); HEMOGLOBIN 10.5 g/dL (14.0-18.0); LYMPH # 0.9 (1.2-3.4); LYMPH % 4.5 % (22.0-35.0); MEAN CELL VOLUME 62.9 fl (80.0-105.0); MEAN CORPUSCULAR HEMOGLOBIN 18.6 pg (25.0-35.0); MEAN CORPUSCULAR HGB CONC 29.6 g/dl (31.0-37.0); MEAN PLATELET VOLUME 9.6 fl (7.0-11.0); MONO # 1.2 (0.1-0.6); MONO % 6.5 % (1.0-6.0); RBC 5.64 10^6/uL (3.5-6.1); RED CELL DISTRIBUTION WIDTH 18.7 % (11.5-14.5); WHITE BLOOD COUNT 18.7 10^3/ul (4.5-11.0)
--- NOTE | 2018-03-01 10:12 | US ---
Date of service: 03/01/2018 PROCEDURE: Ultrasound of the Kidneys HISTORY: R/o hydronephrosis COMPARISON: Comparison made with prior abdominal ultrasound dated 06/25/2014. TECHNIQUE: Sonogram of the kidneys. FINDINGS: RIGHT KIDNEY: Measures: 10.0 x 5.5 x 4.4 cm. Normal in size, contour and echogenicity. No stone, solid mass lesion or hydronephrosis visualized. LEFT KIDNEY: Measures: 9.9 x 4.9 x 4.7 cm. Normal in size, contour and echogenicity. No stone, solid mass lesion or hydronephrosis visualized. OTHER FINDINGS: None. IMPRESSION: No evidence of shadowing renal calculi or hydronephrosis.
[2018-03-01] MEDS: Hydrocortisone 2.5% Rectal Cream(30 gm) PR SCH ×2 (10:23→18:02)
--- NOTE | 2018-03-01 13:02 | RAD ---
Date of service: 02/28/2018 HISTORY: MD order COMPARISON: No prior. FINDINGS: BOWEL: Normal. No obstruction. No gross free intraperitoneal air seen under the diaphragmatic surfaces. BONES: Normal. OTHER FINDINGS: No definitive abnormal calcifications IMPRESSION: No evidence of acute mechanical bowel obstruction.
--- NOTE | 2018-03-01 13:15 | RAD ---
Date of service: 03/01/2018 HISTORY: CHF COMPARISON: Comparison chest 02/28/2018 FINDINGS: LUNGS: Poor inspiration with low lung volumes, crowded bronchovascular markings and mild bibasilar atelectasis. . PLEURA: No significant pleural effusion identified, no pneumothorax apparent. CARDIOVASCULAR: Heart appears enlarged OSSEOUS STRUCTURES: No significant abnormalities. VISUALIZED UPPER ABDOMEN: Normal. OTHER FINDINGS: None. IMPRESSION: Poor inspiration with low lung volumes, crowded bronchovascular markings and mild bibasilar atelectasis. .
[2018-03-01] MEDS ORDERED: Sodium Chloride 0.9% 1,000 ML IV SCH (21:00)
--- NOTE | 2018-03-02 02:23 | CON ---
Copied To: Jean-Paul Peace MD Attending MD: Jean-Paul Peace MD DATE: 03/01/2018 NEPHROLOGY CONSULTATION HISTORY OF PRESENT ILLNESS: A 52-year-old male with past medical history of hypertension, CHF with systolic dysfunction, status post TIA, depression, presented to the ED with dyspnea since the past 4 months. Nephrology is being consulted for acute kidney injury. The patient is poor historian, only nodding to questions and getting agitated at times. History taken hardly from who was present. Per , the patient has been having increased shortness of breath since the past 4 months but never followed up with any physician and came to the ED yesterday after feeling somewhat scared. She does report that the only medication he has been taking is Aleve up to 4 times per day for nonspecific pain in his abdomen and other areas. The patient otherwise reports that he has been eating well. Denies any nausea, vomiting or diarrhea. Per , he has been having difficulty with urination, has also been constipated. The patient otherwise with no chest pain or palpitations. PAST MEDICAL HISTORY: As above. SOCIAL HISTORY: The patient using methamphetamine also with 20-pack per year smoking history. FAMILY HISTORY: Unclear. REVIEW OF SYSTEMS: CONSTITUTIONAL: No change in appetite. HEENT: Denies any upper respiratory symptoms other than cough. RESPIRATORY: Cough. CARDIOVASCULAR: Increased dyspnea. GI: As per HPI. : As per HPI. MUSCULOSKELETAL: Nonspecific aches and pains. PSYCHIATRIC: History of depression. Denies any suicidality. PHYSICAL EXAMINATION VITAL SIGNS: This morning, blood pressure 127/75, heart rate 87, respiration 19, temperature 97.7, O2 sat 95% on room air. GENERAL: Lying comfortably in bed, not in any acute distress. HEENT: Moist mucous membranes. Nonicteric. No cervical lymphadenopathy. RESPIRATORY: Lungs with mild rales, no respiratory distress. CARDIOVASCULAR: Heart sounds somewhat distant. No obvious murmurs, rubs or gallops. The patient otherwise comfortable lying flat without any supplemental O2. GI: Abdomen soft, nontender, nondistended. : Heard in place draining urine. SKIN: Warm. No cyanosis. EXTREMITIES: No significant lower leg edema. PSYCHIATRIC: Agitated at times. NEUROLOGIC: No numbness of feet. No obvious tremor of hands at rest. LABORATORY DATA: CBC: WBC 18.7, hemoglobin 10.5, hematocrit 35.5, platelets 536. Chemistry panel: Sodium 140, potassium 4.4, chloride 99, bicarb 28, BUN 52, creatinine 3.8 increased from 2.1 yesterday. Glucose 160, calcium 8.9, albumin 4.2. Iron studies, iron 24, TIBC 456, percent saturation 5%, ferritin 9.3. TSH 2.31. Urine studies, urine sodium 8, urine creatinine 340, urine protein 100 mg/dL. Echo report from yesterday showing EF of 40%, improved from 25% previously reported. Also mentioning global hypokinesis of LV grade 1 abnormal relaxation pattern, mild to moderate aortic regurgitation, mild to moderate mitral regurgitation, moderate to severe pulmonary hypertension. ASSESSMENT AND PLAN: 1. Acute kidney injury on chronic kidney disease III. Exact baseline renal function unclear as last creatinine available was 1.3 baseline back in 2016. The patient placed on IV diuretics as well as inotropic support with milrinone for congestive heart failure symptoms, however, unclear if the patient was actually volume overloaded as his x-ray appeared from presentation, is relatively clear without significant pulmonary vascular congestion. Furthermore, the patient is very comfortable lying flat without any supplemental oxygen; therefore, acute kidney injury is likely of prerenal etiology in the setting of aggressive diuresis as well as loss of autoregulation after being given a dose of Toradol. The patient may also have an element of normotensive acute tubular necrosis due to blood pressure being lowered rapidly. Recommendations; agree with holding further diuretics, holding milrinone, giving 1 liter normal saline at 100 cc per hour, hold hydralazine and lisinopril, need to avoid all nephrotoxic agents (NSAIDs, phosphate enema, etc.) 2. Congestive heart failure with systolic dysfunction, as noted above unclear if the patient was actually volume overloaded on presentation, holding diuretics as above, should wait until renal function has improved to baseline before restarting YURIDIA inhibitor. 3. Proteinuria 100 mg/dL on urinalysis which was seen on previous admission as well, goes against simple cardiorenal etiology of chronic kidney disease. We will obtain random urine for protein, creatinine, microalbumin. We will obtain serologic workup for proteinuric kidney disease. 4. Urinary retention likely due to enlarged prostate, although no imaging available. We will restart Flomax 0.4 mg daily and finasteride at 5 mg daily. 5. Constipation. Need to avoid nephrotoxic agents as well as drugs that can rapidly accumulate renal failure such as magnesium citrate. Should use mineral oil enema if needed; can use lactulose or MiraLax for laxative. Thank you for this referral. We will be following up closely. Jean-Paul Peace MD
[2018-03-02] MEDS: Pantoprazole 40 mg EC Tab PO SCH (06:01)
[2018-03-02 08:05] LABS: EOS # 0.1 (0.0-0.7); EOS % 0.4 % (1.5-5.0); GRAN # 13.38 (1.4-6.5); GRAN % 86.8 % (50.0-68.0); HEMOGLOBIN 9.7 g/dL (14.0-18.0); LYMPH % 6.5 % (22.0-35.0); MEAN CELL VOLUME 63.2 fl (80.0-105.0); MEAN CORPUSCULAR HEMOGLOBIN 18.2 pg (25.0-35.0); MEAN CORPUSCULAR HGB CONC 28.9 g/dl (31.0-37.0); MEAN PLATELET VOLUME 10.2 fl (7.0-11.0); MONO % 6.3 % (1.0-6.0); RBC 5.32 10^6/uL (3.5-6.1); RED CELL DISTRIBUTION WIDTH 18.6 % (11.5-14.5); WHITE BLOOD COUNT 15.4 10^3/ul (4.5-11.0)
[2018-03-02 08:07] LABS: ALB/GLOB RATIO 0.9 (1.1-1.8); ALBUMIN 3.1 g/dL (3.0-4.8); ALT/SGPT 28 U/L (7-56); AST/SGOT 37 U/L (17-59); BLOOD UREA NITROGEN 47 mg/dL (7-21); CALCIUM 7.7 mg/dL (8.4-10.5); GFR AFRICAN-AMERICAN 32; GFR NON-AFRICAN AMERICAN 26
--- NOTE | 2018-03-02 08:39 | CP.PCM.PN ---
<Terence Mendez - Last Filed: 03/02/18 10:15> Subjective - Date & Time of Evaluation Date of Evaluation: 03/02/18 Time of Evaluation: 08:39 - Subjective Subjective: Terence Mendez DO PGY1 - Internal Medicine Lead Nitrate Processor - Hospital Progress Note Pt. seen at bedside w/ present. No issues reported overnight by nursing. Pt. complaining of horton discomfort. Pt. notified of improving cr; Pt. and educated that he should sit upright during meals to avoid aspiration/ reflux. Will consider Voiding trial once 24H urine is completed. 12 system ROS otherwise negative. Objective - Vital Signs/Intake and Output Vital Signs (last 24 hours): Temp Pulse Resp BP Pulse Ox 98.4 F 89 20 130/85 96 03/02/18 06:00 03/02/18 06:00 03/02/18 06:00 03/02/18 06:00 03/02/18 06:00 Intake and Output: 03/02/18 03/02/18 06:59 18:59 Intake Total 420 Output Total 500 Balance -80 - Medications Medications: Current Medications Atorvastatin Calcium (Lipitor) 10 mg PO DIN [facility] Last Admin: 03/01/18 18:02 Dose: 10 mg Carvedilol (Coreg) 12.5 mg PO BID [facility] Last Admin: 03/01/18 18:02 Dose: 12.5 mg Digoxin (Digoxin) 0.125 mg PO MWF [facility] Last Admin: 02/28/18 10:45 Dose: 0.125 mg Finasteride (Proscar) 5 mg PO DAILY [facility] Last Admin: 03/01/18 13:12 Dose: 5 mg Fluoxetine HCl (Prozac) 10 mg PO DAILY [facility] Last Admin: 03/01/18 13:12 Dose: 10 mg Furosemide (Lasix) 40 mg IVP 0800,1400 [facility] Stop: 03/03/18 23:59 Last Admin: 02/28/18 15:08 Dose: Not Given Hydralazine HCl (Apresoline) 10 mg PO QID PRN PRN Reason: for sbp >170 Hydralazine HCl (Apresoline) 25 mg PO BID [facility] Last Admin: 03/01/18 10:22 Dose: 25 mg Hydrocortisone (Anusol-Hc) 0 gm MI BID [facility] Last Admin: 03/01/18 18:02 Dose: Not Given Milrinone Lactate/Dextrose (Primacor 20mg/100ml D5w) 100 mls @ 6.26 mls/hr IV .[id number] PRN; Protocol; 0.2 MCG/KG/MIN PRN Reason: TITRATE PER MD ORDER Stop: 03/03/18 07:00 Last Admin: 02/28/18 13:13 Dose: 0.2 mcg/kg/min, 6.26 mls/hr Iron Sucrose 100 mg/ Sodium (Chloride) 105 mls @ 210 mls/hr IVPB DAILY [facility] Stop: 03/05/18 10:29 Last Admin: 03/01/18 22:38 Dose: 210 mls/hr Lisinopril (Zestril) 5 mg PO DAILY [facility] Last Admin: 02/28/18 10:45 Dose: 5 mg Lorazepam (Ativan) 0.5 mg PO Q6 PRN; Protocol PRN Reason: Anxiety Last Admin: 03/01/18 21:25 Dose: 0.5 mg Pantoprazole Sodium (Protonix Ec Tab) 40 mg PO 0600 [facility] Last Admin: 03/02/18 06:01 Dose: 40 mg Spironolactone (Aldactone) 25 mg PO DAILY [facility] Last Admin: 02/28/18 10:45 Dose: 25 mg Tamsulosin HCl (Flomax) 0.4 mg PO DAILY [facility] Last Admin: 03/01/18 13:12 Dose: 0.4 mg - Labs Labs: 03/02/18 06:30 03/02/18 06:30 PT 15.3 SECONDS (9.4-12.5) H 02/28/18 04:14 INR 1.33 02/28/18 04:14 Physical Exam - Constitutional Appears: Non-toxic, No Acute Distress - Head Exam Head Exam: ATRAUMATIC, NORMAL INSPECTION, NORMOCEPHALIC - Eye Exam Eye Exam: EOMI, Normal appearance, PERRL Pupil Exam: NORMAL ACCOMODATION, PERRL - ENT Exam ENT Exam: Mucous Membranes Moist, Normal Exam - Neck Exam Neck exam: Positive for: Normal Inspection - Respiratory Exam Respiratory Exam: Clear to Auscultation Bilateral, NORMAL BREATHING PATTERN - Cardiovascular Exam Cardiovascular Exam: Tachycardia, REGULAR RHYTHM, +S1, +S2 - GI/Abdominal Exam GI & Abdominal Exam: Normal Bowel Sounds, Soft. absent: Organomegaly, Pulsatile Mass, Tenderness - Rectal Exam Rectal Exam: Deferred (patient anxious at this time) - Extremities Exam Extremities exam: Positive for: normal inspection, pedal pulses present. Negative for: calf tenderness, pedal edema, tenderness - Back Exam Back exam: NORMAL INSPECTION - Neurological Exam Neurological exam: Alert, CN II-XII Intact, Oriented x3, Reflexes Normal - Skin Skin Exam: Dry, Intact, Normal Color, Warm Assessment and Plan - Assessment and Plan (Free Text) Assessment: 52 y/o male with PMH HTN, CHF,TIA, depression admitted for 4 month h/o shortness of breath at rest and with exertion. In ED found to be hypertensive 213/113, trop 0.03, BNP 3710, CK 514. CXR shows cardiomegaly. EKG shows S tachy @112, QTc 477, with LA enlargement. Admitted for CHF exacerbation. Plan: CHF EXACERBATION - Still euvolemic at this time; no chest pain or signs of fluid overload - C/w digoxin 0.125 PO MWF - Digoxin level <0.4 yesterday - Holding diuretics in setting of DAVINA - Follow up CXR with poor inspiration/ low lung oclume, crowded bronchovascular markings, and mild atelectasis -Troponins negative -Duoneb PRN -cardio consulted -Repeated Echo showed EF of 40% -O2 NC prn -IO: +720ml/24H -IO: -2924 since admit HTN urgency -BP 213/113 on admission; Medication non compliance -Normotensive in last 24H -BP rx on hold as per nephrology at this time Anemia -Microcytic in nature -Iron low; TIBC normal; % saturation low -Follow up with GI out pt for maintenance colonoscopy DAVINA- Improving -Cr. increased from 3.8 to 2.6 in last 24H -Most likely 2/2 Diuresis; however patient was exhibiting signs of urinary retention -Bladder scan showed 331 mL. Horton catheter was placed with 350 mL urine output -Started flomax -Started Finasteride -Holding Lasix 40 BID -Holding Spironolactone 25 QD -Holding Lisinopril 5 QD -Renal US wnl -UA with proteinuria -Nephrology following Chronic constipation/hemorrhoid -H/O painful, bleeding hemorrhoids associated with chronic constipation -Rectal exam deferred, patient anxious at time of exam -Miralax -Anusole ointment History of substance abuse/ Depression -h/o methamphetamine use. experiencing withdrawal symptoms. -Severe depression -Urine tox - Cannabinoid + -Increased to Prozac 20 QD -Started valium 5Q12 PRN -Psych consulted, recs appreciated DVT ppx SCD Dispo: Inpatient admission for continued management / treatment of CHF, Depression, DAVINA, and urinary retention Patient seen, examined, and discussed at great length w/ attending physician Dominick Rolon DO PGY1 - Internal Medicine Lead Nitrate Processor - Pager [phone] <Dominick Knight - Last Filed: 03/02/18 11:40> Objective - Vital Signs/Intake and Output Vital Signs (last 24 hours): Temp Pulse Resp BP Pulse Ox 98.4 F 80 20 137/70 96 03/02/18 06:00 03/02/18 11:20 03/02/18 06:00 03/02/18 11:20 03/02/18 06:00 Intake and Output: 03/02/18 03/02/18 06:59 18:59 Intake Total 420 Output Total 500 Balance -80 - Medications Medications: Current Medications Atorvastatin Calcium (Lipitor) 10 mg PO DIN [facility] Last Admin: 03/01/18 18:02 Dose: 10 mg Carvedilol (Coreg) 12.5 mg PO BID [facility] Last Admin: 03/02/18 11:20 Dose: 12.5 mg Diazepam (Valium) 5 mg PO Q12 PRN; Protocol PRN Reason: Anxiety Last Admin: 03/02/18 11:17 Dose: 5 mg Digoxin (Digoxin) 0.125 mg PO MWF [facility] Last Admin: 02/28/18 10:45 Dose: 0.125 mg Finasteride (Proscar) 5 mg PO DAILY [facility] Last Admin: 03/02/18 11:17 Dose: 5 mg Fluoxetine HCl (Prozac) 20 mg PO DAILY [facility] Last Admin: 03/02/18 11:19 Dose: 20 mg Furosemide (Lasix) 40 mg IVP 0800,1400 [facility] Stop: 03/03/18 23:59 Last Admin: 02/28/18 15:08 Dose: Not Given Hydralazine HCl (Apresoline) 10 mg PO QID PRN PRN Reason: for sbp >170 Hydralazine HCl (Apresoline) 25 mg PO BID [facility] Last Admin: 08/11/18 10:22 Dose: 25 mg Hydrocortisone (Anusol-Hc) 0 gm MI BID [facility] Last Admin: 03/02/18 11:18 Dose: Not Given Milrinone Lactate/Dextrose (Primacor 20mg/100ml D5w) 100 mls @ 6.26 mls/hr IV .[id number] PRN; Protocol; 0.2 MCG/KG/MIN PRN Reason: TITRATE PER MD ORDER Stop: 03/03/18 07:00 Last Admin: 02/28/18 13:13 Dose: 0.2 mcg/kg/min, 6.26 mls/hr Iron Sucrose 100 mg/ Sodium (Chloride) 105 mls @ 210 mls/hr IVPB DAILY [facility] Stop: 03/05/18 10:29 Last Admin: 03/02/18 11:18 Dose: 210 mls/hr Lisinopril (Zestril) 5 mg PO DAILY [facility] Last Admin: 02/28/18 10:45 Dose: 5 mg Pantoprazole Sodium (Protonix Ec Tab) 40 mg PO 0600 [facility] Last Admin: 03/02/18 06:01 Dose: 40 mg Spironolactone (Aldactone) 25 mg PO DAILY [facility] Last Admin: 02/28/18 10:45 Dose: 25 mg Tamsulosin HCl (Flomax) 0.4 mg PO DAILY [facility] Last Admin: 03/02/18 11:17 Dose: 0.4 mg - Labs Labs: 03/02/18 06:30 03/02/18 06:30 PT 15.3 SECONDS (9.4-12.5) H 02/28/18 04:14 INR 1.33 02/28/18 04:14 Attending/Attestation - Attestation I have personally seen and examined this patient.: Yes I have fully participated in the care of the patient.: Yes I have reviewed all pertinent clinical information, including history, physical exam and plan: Yes Notes (Text): 03/02/18 11:27 Medical record note made by the resident after discussion with my direction and input after the patient was personally seen and examined by me 52 y/o male with PMH HTN, CHF with systolic dysfunction, depression, drug abuse and non compliance with medication was admitted with H/O shortness of breath at rest and with exertion. In ED patient was found to be hypertensive 213/113, trop 0.03, BNP 3710, D dimer was elevated.Patient creatinin was 1.7.Venous doppler was negative for DVT and V /Q scan is low probability for PE.Patient was started on IV lasix, and milrinone infusion for CHF.He had good diuresis but patient has developed acute renal failure due to Over diuresis, Echo showed EF 40% and moderate to severe Pulmonary HTN.May also has underlying sleep apnea. His diuretics were held, was given IV fluid, Creatinin has come down to 2.6 from 3.8.Lung sound are clear. Prognosis is guarded due to non compliance and ongoing drug abuse. Management plan was discussed in detail with patient. Education was provided.
[2018-03-02] MEDS: Hydrocortisone 2.5% Rectal Cream(30 gm) PR SCH ×2 (11:18→17:06)
[2018-03-02 11:45] LABS: COMPLEMENT C4 21.3 mg/dL (14.0-44.0)
[2018-03-02 12:22] LABS: URINE BILIRUBIN NEGATIVE (NEGATIVE); URINE BLOOD SMALL (NEGATIVE); URINE GLUCOSE (UA) NEGATIVE (NEGATIVE); URINE LEUKOCYTE ESTERASE TRACE Leu/uL (NEGATIVE); URINE PROTEIN 30 mg/dL (<30 mg/dL)
[2018-03-02 12:23] LABS: URINE APPEARANCE CLEAR (CLEAR); URINE COLOR YELLOW (YELLOW)
[2018-03-02 12:25] LABS: URINE BACTERIA NEG (NEG); URINE EPITHELIAL CELLS 0 - 2 /hpf (0-5); URINE WBC 0 - 2 /hpf (0-6)
[2018-03-02] MEDS ORDERED: Ergocalciferol 50,000 Intl Units Cap PO SCH (12:45)
--- NOTE | 2018-03-02 15:57 | CON ---
Copied To: Leslie Tiwari MD Attending MD: Leslie Tiwari MD DATE: 03/02/2018 HISTORY OF PRESENT ILLNESS: Patient is a 52-year-old male with history of depression, methamphetamine abuse as well as marijuana use. Psychiatrist is seeing him on the medical floor for depression and restlessness/agitation. I met with the patient at bedside yesterday and reviewed nursing notes overnight and patient appears to be in much better control though still remains depressed. I started Prozac 10 mg daily and Ativan p.r.n. Patient is tolerating Prozac very well and denies any side effects thus far, however, reports that Valium has been more beneficial for him in the past for anxiety and agrees to switch Ativan to Valium today. As noted, the patient is still depressed, however, he denies having any hopelessness or suicidal thoughts. He is coherent, responses are consistent and he is becoming more reactive and spontaneous though affect is overall constricted. Patient denies any perceptual disturbances. He does not appear to be responding to internal stimuli. His is at bedside both days, yesterday and today and continues to confirm the patient's account. Patient is agreeable to increasing dose of Prozac to 20 mg daily and again at bedside I reviewed indications of this medication as well as side effects, therapeutic dosing and therapeutic latency. I also reviewed risks of dependency with Valium as well as respiratory depression when given with other benzos, alcohol, sedatives or opiates and reviewed indications of this medication as well. Both and the patient continued to report understanding and impulse control as well as insight and judgement are improving. Vital signs and labs are reviewed. RELEVANT PSYCHIATRIC MEDICATIONS: Includes Prozac 10 mg daily and Ativan 0.5 mg p.o. every 6 hours daily. IMPRESSION: Major depressive disorder, moderate as well as generalized anxiety disorder; history of methamphetamine abuse as well as cannabis abuse; rule out substance-induced mood disorder. RECOMMENDATIONS: 1. At this time, we will increase Prozac to 20 mg daily, which is minimal therapeutic dose with depression and anxiety. 2. We will switch Ativan 0.5 every 6 hours to Valium 5 mg every 12 hours p.r.n. for the patient's anxiety. 3. Patient is psychiatrically stable at this time. There are no indications for further follow up at this time and this psychiatrist will sign off. Please note when the patient is ultimately medically cleared, he is also psychiatrically cleared and does not require inpatient hospitalization nor does he seems to be interested in this option. Patient should be seen by social work and given a list of mental health facilities that he can follow up to start outpatient treatment. He was also should be given a prescription for Prozac and Valium to last until this followup is arranged. Leslie Tiwari MD : 03/02/2018 10:51:02
--- NOTE | 2018-03-02 19:14 | CP.PCM.PN ---
Subjective - Date & Time of Evaluation Date of Evaluation: 03/01/18 Time of Evaluation: 11:30 - Subjective Subjective: Patient reports feeling weak; sob improved; no nausea/vomiting/diarrhea; Objective - Vital Signs/Intake and Output Vital Signs (last 24 hours): Temp Pulse Resp BP Pulse Ox 97.1 F L 81 21 126/91 H 96 03/02/18 12:00 03/02/18 18:00 03/02/18 12:00 03/02/18 17:44 03/02/18 06:00 - Medications Medications: Current Medications Atorvastatin Calcium (Lipitor) 10 mg PO DIN [facility] Last Admin: 03/02/18 17:44 Dose: 10 mg Carvedilol (Coreg) 12.5 mg PO BID [facility] Last Admin: 03/02/18 17:44 Dose: 12.5 mg Diazepam (Valium) 5 mg PO Q12 PRN; Protocol PRN Reason: Anxiety Last Admin: 03/02/18 11:17 Dose: 5 mg Digoxin (Digoxin) 0.125 mg PO MWF [facility] Last Admin: 02/28/18 10:45 Dose: 0.125 mg Ergocalciferol (Drisdol 50,000 Intl Units Cap) 1 cap PO Q7D [facility] Last Admin: 03/02/18 13:07 Dose: 1 cap Finasteride (Proscar) 5 mg PO DAILY [facility] Last Admin: 03/02/18 11:17 Dose: 5 mg Fluoxetine HCl (Prozac) 20 mg PO DAILY [facility] Last Admin: 03/02/18 11:19 Dose: 20 mg Furosemide (Lasix) 40 mg IVP 0800,1400 [facility] Stop: 03/03/18 23:59 Last Admin: 02/28/18 15:08 Dose: Not Given Hydralazine HCl (Apresoline) 10 mg PO QID PRN PRN Reason: for sbp >170 Hydralazine HCl (Apresoline) 25 mg PO BID [facility] Last Admin: 03/01/18 10:22 Dose: 25 mg Hydrocortisone (Anusol-Hc) 0 gm [place] BID [facility] Last Admin: 03/02/18 17:06 Dose: Not Given Milrinone Lactate/Dextrose (Primacor 20mg/100ml D5w) 100 mls @ 6.26 mls/hr IV .[id number] PRN; Protocol; 0.2 MCG/KG/MIN PRN Reason: TITRATE PER MD ORDER Stop: 03/03/18 07:00 Last Admin: 02/28/18 13:13 Dose: 0.2 mcg/kg/min, 6.26 mls/hr Iron Sucrose 100 mg/ Sodium (Chloride) 105 mls @ 210 mls/hr IVPB DAILY [facility] Stop: 03/05/18 10:29 Last Admin: 03/02/18 11:18 Dose: 210 mls/hr Lisinopril (Zestril) 5 mg PO DAILY [facility] Last Admin: 02/28/18 10:45 Dose: 5 mg Pantoprazole Sodium (Protonix Ec Tab) 40 mg PO 0600 [facility] Last Admin: 03/02/18 06:01 Dose: 40 mg Spironolactone (Aldactone) 25 mg PO DAILY [facility] Last Admin: 02/28/18 10:45 Dose: 25 mg Tamsulosin HCl (Flomax) 0.4 mg PO DAILY [facility] Last Admin: 03/02/18 11:17 Dose: 0.4 mg - Labs Labs: 03/02/18 06:30 03/02/18 06:30 PT 15.3 SECONDS (9.4-12.5) H 02/28/18 04:14 INR 1.33 02/28/18 04:14 - Constitutional Appears: Non-toxic, No Acute Distress - Eye Exam Eye Exam: Normal appearance - ENT Exam ENT Exam: Mucous Membranes Moist - Respiratory Exam Respiratory Exam: Clear to Ausculation Bilateral. absent: Respiratory Distress - Cardiovascular Exam Cardiovascular Exam: RRR, +S1, +S2. absent: Gallop - GI/Abdominal Exam GI & Abdominal Exam: Soft. absent: Distended, Tenderness - Extremities Exam Additional comments: no leg edema; - Neurological Exam Neurological Exam: Alert, Awake - Psychiatric Exam Psychiatric exam: Depressed. absent: Agitated - Skin Skin Exam: Warm. absent: Cyanosis Assessment and Plan (1) Acute kidney injury Assessment & Plan: DAVINA on CKD IIIA; pre-renal etiology, improved after holding diuretics and giving 1L NS overnight; patient tolerating diet, will hold off on further IVF for now; -continue to hold diuretics; -avoid nephrotoxic insults (NSAIDS, phosphate enema); -repeating urine lytes to see if pre-renal state resolved; Status: Acute (2) Congestive heart failure (CHF) Assessment & Plan: With systolic dysfunction; doesn't appear to be decompensated currently; CXR clear on presentation and patient currently asymptomatic, with no edema on exam; -continue to optimize CHF status with B-blockers, YURIDIA inhibitor; holding diuretic for now; Status: Chronic (3) CKD (chronic kidney disease) stage 3, GFR 30-59 ml/min Assessment & Plan: Baseline serum creatinine appears to have been ~1.5 in 2016; very mild proteinuria; serologic workup sent as a precaution, will f/u; Status: Chronic (4) Anemia Assessment & Plan: Mild anemia; some component of iron deficiency; started on IV iron loading, continue; Status: Acute (5) HTN (hypertension) Assessment & Plan: Hypertensive urgency on presentation, possibly due to drug withdrawal; BP currently controlled off anti-htn meds, continue to hold (except for low dose lisinopril); Status: Acute
[2018-03-03] MEDS: Pantoprazole 40 mg EC Tab PO SCH (06:23)
[2018-03-03 06:43] LABS: CREATININE,RANDOM URINE 81 mg/dL
--- NOTE | 2018-03-03 07:03 | CP.PCM.PN ---
Subjective - Date & Time of Evaluation Date of Evaluation: 03/03/18 Time of Evaluation: 06:20 - Subjective Subjective: Easily awaken, denies chest pain, denies shortness of breath Reason for consultation and followup: Cardiac evaluation of shortness of breath , decompensated congestive heart failure Seen and examined by me and Dr. Aceves Objective - Vital Signs/Intake and Output Vital Signs (last 24 hours): Temp Pulse Resp BP Pulse Ox 98.1 F 71 19 114/71 98 03/03/18 06:00 03/03/18 06:00 03/03/18 06:00 03/03/18 06:00 03/03/18 06:00 Intake and Output: 03/02/18 03/03/18 18:59 06:59 Intake Total 660 Output Total 600 Balance 60 - Medications Medications: Current Medications Atorvastatin Calcium (Lipitor) 10 mg PO DIN [facility] Last Admin: 03/02/18 17:44 Dose: 10 mg Carvedilol (Coreg) 12.5 mg PO BID [facility] Last Admin: 03/02/18 17:44 Dose: 12.5 mg Diazepam (Valium) 5 mg PO Q12 PRN; Protocol PRN Reason: Anxiety Last Admin: 03/02/18 23:02 Dose: 5 mg Digoxin (Digoxin) 0.125 mg PO MWF [facility] Last Admin: 02/28/18 10:45 Dose: 0.125 mg Ergocalciferol (Drisdol 50,000 Intl Units Cap) 1 cap PO Q7D [facility] Last Admin: 03/02/18 13:07 Dose: 1 cap Finasteride (Proscar) 5 mg PO DAILY [facility] Last Admin: 03/02/18 11:17 Dose: 5 mg Fluoxetine HCl (Prozac) 20 mg PO DAILY [facility] Last Admin: 03/02/18 11:19 Dose: 20 mg Furosemide (Lasix) 40 mg IVP 0800,1400 [facility] Stop: 03/03/18 23:59 Last Admin: 02/28/18 15:08 Dose: Not Given Hydralazine HCl (Apresoline) 10 mg PO QID PRN PRN Reason: for sbp >170 Hydralazine HCl (Apresoline) 25 mg PO BID [facility] Last Admin: 03/01/18 10:22 Dose: 25 mg Hydrocortisone (Anusol-Hc) 0 gm ME BID [facility] Last Admin: 03/02/18 17:06 Dose: Not Given Milrinone Lactate/Dextrose (Primacor 20mg/100ml D5w) 100 mls @ 6.26 mls/hr IV .[id number] PRN; Protocol; 0.2 MCG/KG/MIN PRN Reason: TITRATE PER MD ORDER Stop: 03/03/18 07:00 Last Admin: 02/28/18 13:13 Dose: 0.2 mcg/kg/min, 6.26 mls/hr Iron Sucrose 100 mg/ Sodium (Chloride) 105 mls @ 210 mls/hr IVPB DAILY [facility] Stop: 03/05/18 10:29 Last Admin: 03/02/18 11:18 Dose: 210 mls/hr Lisinopril (Zestril) 5 mg PO DAILY [facility] Last Admin: 02/28/18 10:45 Dose: 5 mg Pantoprazole Sodium (Protonix Ec Tab) 40 mg PO 0600 [facility] Last Admin: 03/03/18 06:23 Dose: 40 mg Spironolactone (Aldactone) 25 mg PO DAILY [facility] Last Admin: 02/28/18 10:45 Dose: 25 mg Tamsulosin HCl (Flomax) 0.4 mg PO DAILY [facility] Last Admin: 03/02/18 11:17 Dose: 0.4 mg - Labs Labs: 03/02/18 06:30 03/02/18 06:30 PT 15.3 SECONDS (9.4-12.5) H 02/28/18 04:14 INR 1.33 02/28/18 04:14 - Constitutional Appears: No Acute Distress - Eye Exam Eye Exam: Normal appearance - Respiratory Exam Respiratory Exam: Decreased Breath Sounds, NORMAL BREATHING PATTERN - Cardiovascular Exam Cardiovascular Exam: REGULAR RHYTHM, +S1, +S2 - GI/Abdominal Exam GI & Abdominal Exam: Soft, Normal Bowel Sounds - Exam Additional comments: horton catheter - Neurological Exam Neurological Exam: Alert, Awake, Oriented x3 - Psychiatric Exam Psychiatric exam: Normal Affect - Skin Skin Exam: Dry, Intact, Warm Assessment and Plan - Assessment and Plan (Free Text) Assessment: A 52 year old male who came in to the ER due to shortness of breath. History of dilated cardiomyopathy (LVEF 25%)non-obstructive coronary artery disease, COPD , renal insufficiency, hypertension, non copliant with medications. Decompensated congestive heart failure, Started on Primacor drip. Plan: Echo done-LVEF 40 %,systolic function moderately impaired Moderate AR/MR, mild TR, severe pulmonary hypertension On Primacor drip, symptoms improved, Discontinue today On Lipitor 10 mg daily,Coreg 12.5 mg BID,Digoxin 0.125 mg MWF, Lasix 40 mg BID, Apresoline 25 mg BID, Lisinopril 5 mg daily, Aldactone 25 mg daily,Flomax 0.4 mg daily Renal on consult, work up in progress On 24 hour urine collection Continue current treatment Continue current medications Will follow up Plan and treatment discussed with Dr. Aceves
[2018-03-03 07:15] LABS: ALBUMIN 3.1 g/dL (3.0-4.8); CALCIUM 8.1 mg/dL (8.4-10.5)
[2018-03-03 07:21] LABS: BASO # 0.01 K/mm3 (0.0-2.0); BASO % 0.1 % (0.0-3.0); EOS # 0.2 (0.0-0.7); EOS % 1.4 % (1.5-5.0); GRAN # 9.79 (1.4-6.5); GRAN % 76.9 % (50.0-68.0); HEMOGLOBIN 9.7 g/dL (14.0-18.0); LYMPH # 1.6 (1.2-3.4); LYMPH % 12.7 % (22.0-35.0); MEAN CELL VOLUME 63.7 fl (80.0-105.0); MEAN CORPUSCULAR HEMOGLOBIN 18.3 pg (25.0-35.0); MEAN CORPUSCULAR HGB CONC 28.7 g/dl (31.0-37.0); MEAN PLATELET VOLUME 10.3 fl (7.0-11.0); MONO # 1.1 (0.1-0.6); MONO % 8.9 % (1.0-6.0); RBC 5.31 10^6/uL (3.5-6.1); RED CELL DISTRIBUTION WIDTH 18.6 % (11.5-14.5); WHITE BLOOD COUNT 12.7 10^3/ul (4.5-11.0)
--- NOTE | 2018-03-03 08:02 | CP.PCM.PN ---
Subjective - Date & Time of Evaluation Date of Evaluation: 03/03/18 Time of Evaluation: 08:02 - Subjective Subjective: PGY-2 Nephrology Progress Note- Dr. Peace Patient seen and examined at bedside. Per nursing no acute events occurred overnight. Patient denies any chest pain, shortness of breath, fevers, chills, nausea, vomiting, changes in vision, or any other complaints. Objective - Vital Signs/Intake and Output Vital Signs (last 24 hours): Temp Pulse Resp BP Pulse Ox 98.1 F 71 19 114/71 98 03/03/18 06:00 03/03/18 06:00 03/03/18 06:00 03/03/18 06:00 03/03/18 06:00 Intake and Output: 03/03/18 03/03/18 06:59 18:59 Intake Total 660 Output Total 600 Balance 60 - Medications Medications: Current Medications Atorvastatin Calcium (Lipitor) 10 mg PO DIN [facility] Last Admin: 03/02/18 17:44 Dose: 10 mg Carvedilol (Coreg) 12.5 mg PO BID [facility] Last Admin: 03/02/18 17:44 Dose: 12.5 mg Diazepam (Valium) 5 mg PO Q12 PRN; Protocol PRN Reason: Anxiety Last Admin: 03/02/18 23:02 Dose: 5 mg Digoxin (Digoxin) 0.125 mg PO MWF [facility] Last Admin: 02/28/18 10:45 Dose: 0.125 mg Ergocalciferol (Drisdol 50,000 Intl Units Cap) 1 cap PO Q7D [facility] Last Admin: 03/02/18 13:07 Dose: 1 cap Finasteride (Proscar) 5 mg PO DAILY [facility] Last Admin: 03/02/18 11:17 Dose: 5 mg Fluoxetine HCl (Prozac) 20 mg PO DAILY [facility] Last Admin: 03/02/18 11:19 Dose: 20 mg Furosemide (Lasix) 40 mg IVP 0800,1400 [facility] Stop: 03/03/18 23:59 Last Admin: 02/28/18 15:08 Dose: Not Given Hydralazine HCl (Apresoline) 10 mg PO QID PRN PRN Reason: for sbp >170 Hydralazine HCl (Apresoline) 25 mg PO BID [facility] Last Admin: 03/01/18 10:22 Dose: 25 mg Hydrocortisone (Anusol-Hc) 0 gm [place] BID [facility] Last Admin: 03/02/18 17:06 Dose: Not Given Iron Sucrose 100 mg/ Sodium (Chloride) 105 mls @ 210 mls/hr IVPB DAILY [facility] Stop: 03/05/18 10:29 Last Admin: 03/02/18 11:18 Dose: 210 mls/hr Lisinopril (Zestril) 5 mg PO DAILY [facility] Last Admin: 02/28/18 10:45 Dose: 5 mg Pantoprazole Sodium (Protonix Ec Tab) 40 mg PO 0600 [facility] Last Admin: 03/03/18 06:23 Dose: 40 mg Spironolactone (Aldactone) 25 mg PO DAILY [facility] Last Admin: 02/28/18 10:45 Dose: 25 mg Tamsulosin HCl (Flomax) 0.4 mg PO DAILY [facility] Last Admin: 03/02/18 11:17 Dose: 0.4 mg - Labs Labs: 03/03/18 06:00 03/03/18 06:00 PT 15.3 SECONDS (9.4-12.5) H 02/28/18 04:14 INR 1.33 02/28/18 04:14 - Head Exam Head Exam: ATRAUMATIC, NORMAL INSPECTION, NORMOCEPHALIC - Eye Exam Eye Exam: EOMI, Normal appearance, PERRL Pupil Exam: NORMAL ACCOMODATION - ENT Exam ENT Exam: Mucous Membranes Moist, Normal Oropharynx - Respiratory Exam Respiratory Exam: Clear to Ausculation Bilateral, NORMAL BREATHING PATTERN. absent: Prolonged Expiratory Phase, Respiratory Distress - Cardiovascular Exam Cardiovascular Exam: REGULAR RHYTHM, +S1, +S2 - GI/Abdominal Exam GI & Abdominal Exam: Soft, Normal Bowel Sounds. absent: Rigid, Hyperactive Bowel Sounds - Extremities Exam Extremities Exam: Full ROM. absent: Joint Swelling, Pedal Edema - Neurological Exam Neurological Exam: Alert, Awake, CN II-XII Intact - Psychiatric Exam Psychiatric exam: Normal Affect, Normal Mood - Skin Skin Exam: Dry, Intact Assessment and Plan - Assessment and Plan (Free Text) Plan: Assessment and Plan (1) Acute kidney injury Assessment & Plan: DAVINA on CKD IIIA; pre-renal etiology,patient tolerating diet, will hold off on further IVF for now; -continue to hold diuretics; -avoid nephrotoxic insults (NSAIDS, phosphate enema); -repeating urine lytes Nayeli: 9and UCr:81 Status: Acute (2) Congestive heart failure (CHF) Assessment & Plan: With systolic dysfunction; doesn't appear to be decompensation currently; CXR clear on presentation and patient currently asymptomatic, with no edema on exam; -continue to optimize CHF status with B-blockers, YURIDIA inhibitor; holding diuretic for now; Status: Chronic (3) CKD (chronic kidney disease) stage 3, GFR 30-59 ml/min Assessment & Plan: Baseline serum creatinine appears to have been ~1.5 in 2016; very mild proteinuria; serologic workup sent as a precaution received in the laboratory. Will follow up with final results. Status: Chronic (4) Anemia Assessment & Plan: Mild anemia; some component of iron deficiency; started on IV iron loading, continue; Status: Acute (5) HTN (hypertension) Assessment & Plan: Hypertensive urgency on presentation, possibly due to drug withdrawal; BP currently controlled off anti-htn meds, continue to hold (except for low dose lisinopril); Status: Acute Dispo: If patient cleared by Primary Team, patient can be discharged on Aldactone 25mg PO Daily and Lasix 20mg Daily pending voiding trial results and primary team rec's. Patient will be provided information to Dr. Peace's clinic for follow up.
--- NOTE | 2018-03-03 08:13 | CON ---
Copied To: Leslie Tiwari MD Attending MD: Leslie Tiwari MD DATE: 03/01/2018 HISTORY OF PRESENT ILLNESS: The patient is a 52-year-old male with severe depression and prior and current marijuana use. Psychiatry is seeing him in the medical floor due to reports of depression. I reviewed recent notes, which indicated that the patient has been labile, combative, agitated and required acute in the last 24 hours. The patient has been a lot calmer this morning and cooperative during my questioning today. He readily admits that he has been very depressed, though he is not suicidal, he has low energy, he has anhedonia and some of these might contributed by marijuana use, which the patient chronically uses. Records also indicates that the patient has a history of methamphetamine use months ago. The patient continues to be depressed and does not have a history of psychiatric management regarding the medications. However, I discussed with him the possible benefits of medication management at this time with him and his and the patient is in agreement today. I discussed benefits of Prozac 10 mg started today as well as starting Ativan associated with the initiation of Prozac and the patient is in agreement. I discussed the indications, dosing, and therapeutic latency with the patient and today as well. Insight and judgment are improving right now. He is not hallucinating, generally coherent, and responses to relevant questioning, at times he jokes appropriately with this provider, although affect is overall dysthymic. Vital signs and labs were reviewed. Relevant psychiatric medications today is Prozac 10 mg daily, and Ativan 0.5 p.o. every 6 p.r.n. IMPRESSION: Mood disorder, not otherwise specified, likely depression, rule out contribution of major depressive disorder, moderate with substance induced mood disorder. The patient has methamphetamine abuse by history and current cannabis abuse. RECOMMENDATIONS: As noted at this time, we will start Prozac 10 mg daily, and Ativan 0.5 mg every 6 p.r.n. for anxiety and depression. Psychiatry will continue to follow up with patient on the medical floor and monitor his tolerance and reaction to the medication. The patient does not require one-to-one for depression or suicidal thought. We will consider transfer to Psychiatric Unit if he is amenable; however, this is not a necessity at this time. If the patient should be medically cleared, if the patient is also psychiatrically cleared and should be given resources regarding outpatient help the treatment. Psychiatry will continue to follow up while he is hospitalized. Next follow up will be 03/02/2018. Leslie Tiwari MD
[2018-03-03 08:44] LABS: HEPATITIS B SURFACE AG Negative (NEGATIVE)
[2018-03-03] MEDS: Digoxin 125 mcg (0.125 mg) Tab PO SCH (10:16)
[2018-03-03] MEDS: Hydrocortisone 2.5% Rectal Cream(30 gm) PR SCH ×2 (10:17→18:30)
[2018-03-03 10:26] VITALS: PULSE 76
--- NOTE | 2018-03-03 15:55 | CP.PCM.PN ---
<Terence Mendez - Last Filed: 03/03/18 15:50> Subjective - Date & Time of Evaluation Date of Evaluation: 03/03/18 Time of Evaluation: 15:50 - Subjective Subjective: Terence Mendez DO PGY1 Internal Medicine Board Certified Music Therapist - Hospital Progress NOte Patient was seen and examined today at bedside. He was resting comfortably upon exam. Patient was only voicing complaints of horton site pain this AM. Patient will undergo voiding trial. 12 system ROS otherwise negative. Objective - Vital Signs/Intake and Output Vital Signs (last 24 hours): Temp Pulse Resp BP Pulse Ox 98.8 F 84 20 142/92 H 98 03/03/18 12:00 03/03/18 14:00 03/03/18 12:00 03/03/18 15:25 03/03/18 06:00 Intake and Output: 03/03/18 03/03/18 06:59 18:59 Intake Total 660 100 Output Total 600 Balance 60 100 - Medications Medications: Current Medications Atorvastatin Calcium (Lipitor) 10 mg PO DIN [facility] Last Admin: 03/02/18 17:44 Dose: 10 mg Carvedilol (Coreg) 12.5 mg PO BID [facility] Last Admin: 03/03/18 10:19 Dose: 12.5 mg Diazepam (Valium) 5 mg PO Q12 PRN; Protocol PRN Reason: Anxiety Last Admin: 03/03/18 10:29 Dose: 5 mg Digoxin (Digoxin) 0.125 mg PO MWF [facility] Last Admin: 03/03/18 10:16 Dose: 0.125 mg Ergocalciferol (Drisdol 50,000 Intl Units Cap) 1 cap PO Q7D [facility] Last Admin: 03/02/18 13:07 Dose: 1 cap Finasteride (Proscar) 5 mg PO DAILY [facility] Last Admin: 03/03/18 10:16 Dose: 5 mg Fluoxetine HCl (Prozac) 20 mg PO DAILY [facility] Last Admin: 03/03/18 10:17 Dose: 20 mg Furosemide (Lasix) 40 mg IVP 0800,1400 [facility] Stop: 03/03/18 23:59 Last Admin: 02/28/18 15:08 Dose: Not Given Furosemide (Lasix) 40 mg PO 0800,1500 [facility] Last Admin: 03/03/18 15:25 Dose: 40 mg Hydralazine HCl (Apresoline) 10 mg PO QID PRN PRN Reason: for sbp >170 Hydralazine HCl (Apresoline) 25 mg PO BID [facility] Last Admin: 03/01/18 10:22 Dose: 25 mg Hydrocortisone (Anusol-Hc) 0 gm [place] BID [facility] Last Admin: 03/03/18 10:17 Dose: 1 applic Iron Sucrose 100 mg/ Sodium (Chloride) 105 mls @ 210 mls/hr IVPB DAILY [facility] Stop: 03/05/18 10:29 Last Admin: 03/03/18 10:16 Dose: 210 mls/hr Lisinopril (Zestril) 10 mg PO DAILY [facility] Pantoprazole Sodium (Protonix Ec Tab) 40 mg PO 0600 [facility] Last Admin: 03/03/18 06:23 Dose: 40 mg Spironolactone (Aldactone) 25 mg PO DAILY [facility] Last Admin: 02/28/18 10:45 Dose: 25 mg Tamsulosin HCl (Flomax) 0.4 mg PO DAILY [facility] Last Admin: 03/03/18 10:17 Dose: 0.4 mg - Labs Labs: 03/03/18 06:00 03/03/18 06:00 PT 15.3 SECONDS (9.4-12.5) H 02/28/18 04:14 INR 1.33 02/28/18 04:14 Physical Exam - Constitutional Appears: Non-toxic, No Acute Distress - Head Exam Head Exam: ATRAUMATIC, NORMAL INSPECTION, NORMOCEPHALIC - Eye Exam Eye Exam: EOMI, Normal appearance, PERRL Pupil Exam: NORMAL ACCOMODATION, PERRL - ENT Exam ENT Exam: Mucous Membranes Moist, Normal Exam - Neck Exam Neck exam: Positive for: Normal Inspection - Respiratory Exam Respiratory Exam: Clear to Auscultation Bilateral, NORMAL BREATHING PATTERN - Cardiovascular Exam Cardiovascular Exam: Tachycardia, REGULAR RHYTHM, +S1, +S2 - GI/Abdominal Exam GI & Abdominal Exam: Normal Bowel Sounds, Soft. absent: Organomegaly, Pulsatile Mass, Tenderness - Rectal Exam Rectal Exam: Deferred (patient anxious at this time) - Extremities Exam Extremities exam: Positive for: normal inspection, pedal pulses present. Negative for: calf tenderness, pedal edema, tenderness - Back Exam Back exam: NORMAL INSPECTION - Neurological Exam Neurological exam: Alert, CN II-XII Intact, Oriented x3, Reflexes Normal - Skin Skin Exam: Dry, Intact, Normal Color, Warm Assessment and Plan - Assessment and Plan (Free Text) Assessment: 52 y/o male with PMH HTN, CHF,TIA, depression admitted for 4 month h/o shortness of breath at rest and with exertion. In ED found to be hypertensive 213/113, trop 0.03, BNP 3710, CK 514. CXR shows cardiomegaly. EKG shows S tachy @112, QTc 477, with LA enlargement. Admitted for CHF exacerbation. Plan: CHF EXACERBATION - No volume overload; no cardio-pulmonary complaints - C/w digoxin 0.125 PO MWF - Digoxin level <0.4 on 03/01; Will repeat level tomorrow - Resumed Lasix 40 BID - Follow up CXR with poor inspiration/ low lung oclume, crowded bronchovascular markings, and mild atelectasis -Troponins negative -Duoneb PRN -cardio consulted -Repeated Echo showed EF of 40% -O2 NC prn -IO: +60ml / 24H DAVINA- Improving -Cr. increased from 2.6 to 1.9 in last 24H -Most likely 2/2 Diuresis; however patient was exhibiting signs of urinary retention -Bladder scan showed 331 mL. Horton catheter was placed with 350 mL urine output - 24 Hour urine study completed at this time; Horton catheter removed - Patient will undergo voiding trial -c/w Flomax -c/w Finasteride -Resume Lasix 40 BID as per nephro -Holding Spironolactone 25 QD -Holding Lisinopril 5 QD -Renal US wnl -UA with proteinuria -Nephrology following; -Cleared from nephrology standpoint for discharge at this time; Patient is okay to restart CHF medications, continue flomax/ finasteride as outpatient. HTN urgency -BP 213/113 on admission; Medication non compliance -Normotensive in last 24H -BP rx on hold as per nephrology at this time Anemia -Microcytic in nature -Iron low; TIBC normal; % saturation low -Given Iron IV -Follow up with GI out pt for maintenance colonoscopy Chronic constipation/hemorrhoid -H/O painful, bleeding hemorrhoids associated with chronic constipation -Rectal exam deferred, patient anxious at time of exam -Miralax -Anusole ointment History of substance abuse/ Depression -h/o methamphetamine use. experiencing withdrawal symptoms. -Severe depression -Urine tox - Cannabinoid + -Increased to Prozac 20 QD -Started valium 5Q12 PRN -Psych consulted, recs appreciated DVT ppx SCD Dispo: Inpatient admission for continued management / treatment of CHF, Depression, DAVINA, and urinary retention; SW consulted for SHAN replacement Patient seen, examined, and discussed at great length w/ attending physician Dominick Rolon DO PGY1 - Internal Medicine Board Certified Music Therapist - Pager [phone] <Daljit Bryan A - Last Filed: 03/03/18 16:31> Objective - Vital Signs/Intake and Output Vital Signs (last 24 hours): Temp Pulse Resp BP Pulse Ox 98.8 F 84 20 142/92 H 98 03/03/18 12:00 03/03/18 14:00 03/03/18 12:00 03/03/18 15:25 03/03/18 06:00 Intake and Output: 03/03/18 03/03/18 06:59 18:59 Intake Total 660 100 Output Total 600 Balance 60 100 - Medications Medications: Current Medications Atorvastatin Calcium (Lipitor) 10 mg PO DIN [facility] Last Admin: 03/02/18 17:44 Dose: 10 mg Carvedilol (Coreg) 12.5 mg PO BID [facility] Last Admin: 03/03/18 10:19 Dose: 12.5 mg Diazepam (Valium) 5 mg PO Q12 PRN; Protocol PRN Reason: Anxiety Last Admin: 03/03/18 10:29 Dose: 5 mg Digoxin (Digoxin) 0.125 mg PO MWF [facility] Last Admin: 03/03/18 10:16 Dose: 0.125 mg Ergocalciferol (Drisdol 50,000 Intl Units Cap) 1 cap PO Q7D [facility] Last Admin: 03/02/18 13:07 Dose: 1 cap Finasteride (Proscar) 5 mg PO DAILY [facility] Last Admin: 03/03/18 10:16 Dose: 5 mg Fluoxetine HCl (Prozac) 20 mg PO DAILY [facility] Last Admin: 03/03/18 10:17 Dose: 20 mg Furosemide (Lasix) 40 mg PO 0800,1500 [facility] Last Admin: 03/03/18 15:25 Dose: 40 mg Hydralazine HCl (Apresoline) 10 mg PO QID PRN PRN Reason: for sbp >170 Hydralazine HCl (Apresoline) 25 mg PO BID [facility] Last Admin: 03/01/18 10:22 Dose: 25 mg Hydrocortisone (Anusol-Hc) 0 gm [place] BID [facility] Last Admin: 03/03/18 10:17 Dose: 1 applic Iron Sucrose 100 mg/ Sodium (Chloride) 105 mls @ 210 mls/hr IVPB DAILY [facility] Stop: 03/05/18 10:29 Last Admin: 03/03/18 10:16 Dose: 210 mls/hr Lisinopril (Zestril) 10 mg PO DAILY [facility] Pantoprazole Sodium (Protonix Ec Tab) 40 mg PO 0600 [facility] Last Admin: 03/03/18 06:23 Dose: 40 mg Spironolactone (Aldactone) 25 mg PO DAILY [facility] Last Admin: 02/28/18 10:45 Dose: 25 mg Tamsulosin HCl (Flomax) 0.4 mg PO DAILY [facility] Last Admin: 03/03/18 10:17 Dose: 0.4 mg - Labs Labs: 03/03/18 06:00 03/03/18 06:00 PT 15.3 SECONDS (9.4-12.5) H 02/28/18 04:14 INR 1.33 02/28/18 04:14 Attending/Attestation - Attestation I have personally seen and examined this patient.: Yes I have fully participated in the care of the patient.: Yes I have reviewed all pertinent clinical information, including history, physical exam and plan: Yes Notes (Text): 03/03/18 16:27 52 year old male with past medical history of hypertension, systolic CHF, medication noncompliance and substance abuse who presented with shortness of breath. He was started on iv lasix and milrinone infusion for CHF exacerbation with improvement of symptoms. He then developed acute renal failure for which diuretics were held and he was started on iv fluids. His kidney function is improving. Nephrology and cardiology are following the patient and his medications are slowly being resumed. Horton will be discontinued today with voiding trial. Psychiatry evaluation was appreciated as well. He was counselled on risks of continued substance abuse. is also at bedside and questions were answered. Will request PT follow up for d/c planning. Daljit Bryan MD Hospitalist.
[2018-03-04] MEDS: Pantoprazole 40 mg EC Tab PO SCH (05:34)
--- NOTE | 2018-03-04 06:56 | CP.PCM.PN ---
Subjective - Date & Time of Evaluation Date of Evaluation: 03/04/18 Time of Evaluation: 06:15 - Subjective Subjective: Easily awaken, no distress, no shortness of breath Reason for consultation and followup: Cardiac evaluation of shortness of breath , decompensated congestive heart failure Seen and examined by me and Dr. Aceves Objective - Vital Signs/Intake and Output Vital Signs (last 24 hours): Temp Pulse Resp BP Pulse Ox 99.1 F 78 18 149/83 98 03/03/18 22:11 03/03/18 22:11 03/03/18 22:11 03/03/18 22:11 03/03/18 22:11 Intake and Output: 03/03/18 03/04/18 18:59 06:59 Intake Total 1120 800 Output Total 550 Balance 570 800 - Medications Medications: Current Medications Atorvastatin Calcium (Lipitor) 10 mg PO DIN [facility] Last Admin: 03/03/18 18:29 Dose: 10 mg Carvedilol (Coreg) 12.5 mg PO BID [facility] Last Admin: 03/03/18 18:33 Dose: 12.5 mg Diazepam (Valium) 5 mg PO Q12 PRN; Protocol PRN Reason: Anxiety Last Admin: 03/03/18 21:37 Dose: 5 mg Digoxin (Digoxin) 0.125 mg PO MWF [facility] Last Admin: 03/03/18 10:16 Dose: 0.125 mg Ergocalciferol (Drisdol 50,000 Intl Units Cap) 1 cap PO Q7D [facility] Last Admin: 03/02/18 13:07 Dose: 1 cap Finasteride (Proscar) 5 mg PO DAILY [facility] Last Admin: 03/03/18 10:16 Dose: 5 mg Fluoxetine HCl (Prozac) 20 mg PO DAILY [facility] Last Admin: 03/03/18 10:17 Dose: 20 mg Furosemide (Lasix) 40 mg PO 0800,1500 [facility] Last Admin: 03/03/18 15:25 Dose: 40 mg Hydralazine HCl (Apresoline) 10 mg PO QID PRN PRN Reason: for sbp >170 Hydralazine HCl (Apresoline) 25 mg PO BID [facility] Last Admin: 03/01/18 10:22 Dose: 25 mg Hydrocortisone (Anusol-Hc) 0 gm [place] BID [facility] Last Admin: 03/03/18 18:30 Dose: 1 applic Iron Sucrose 100 mg/ Sodium (Chloride) 105 mls @ 210 mls/hr IVPB DAILY [facility] Stop: 03/05/18 10:29 Last Admin: 03/03/18 10:16 Dose: 210 mls/hr Lisinopril (Zestril) 10 mg PO DAILY [facility] Pantoprazole Sodium (Protonix Ec Tab) 40 mg PO 0600 [facility] Last Admin: 03/04/18 05:34 Dose: 40 mg Spironolactone (Aldactone) 25 mg PO DAILY [facility] Last Admin: 02/28/18 10:45 Dose: 25 mg Tamsulosin HCl (Flomax) 0.4 mg PO DAILY [facility] Last Admin: 03/03/18 10:17 Dose: 0.4 mg - Labs Labs: 03/03/18 06:00 03/03/18 06:00 PT 15.3 SECONDS (9.4-12.5) H 02/28/18 04:14 INR 1.33 02/28/18 04:14 - Constitutional Appears: No Acute Distress - Eye Exam Eye Exam: Normal appearance - ENT Exam ENT Exam: Mucous Membranes Moist - Respiratory Exam Respiratory Exam: Decreased Breath Sounds, NORMAL BREATHING PATTERN - Cardiovascular Exam Cardiovascular Exam: +S1, +S2 - GI/Abdominal Exam GI & Abdominal Exam: Soft, Normal Bowel Sounds - Exam Additional comments: horton catheter - Extremities Exam Extremities Exam: Normal Capillary Refill - Neurological Exam Neurological Exam: Alert, Awake, Oriented x3 - Psychiatric Exam Psychiatric exam: Normal Affect - Skin Skin Exam: Dry, Warm Assessment and Plan - Assessment and Plan (Free Text) Assessment: A 52 year old male who came in to the ER due to shortness of breath. History of dilated cardiomyopathy (LVEF 25%)non-obstructive coronary artery disease, COPD , renal insufficiency, hypertension, non compliant with medications. Decompensated congestive heart failure, Started on Primacor drip.ECHO- LVEF 40 % ,systolic function moderately impaired, Moderate AR/MR, mild TR, severe pulmonary hypertension. Primacor discontinued yesterday. Plan: Symptoms improved,Improved clinically, denies shortness of breath Primacor drip siscontinued yesterday On Lipitor 10 mg daily,Coreg 12.5 mg BID,Digoxin 0.125 mg MWF, Lasix 40 mg BID, Apresoline 25 mg BID, Lisinopril 5 mg daily, Aldactone 25 mg daily,Flomax 0.4 mg daily Renal on consult, work up in progress Cardiac status stable Heart rate and blood pressure controlled Continue current treatment Continue current medications Discharge planning Will follow up Plan and treatment discussed with Dr. Aceves
[2018-03-04 07:24] VITALS: BP 134/79; PULSE 82; RESP 20; TEMP 99; O2SAT 100
[2018-03-04 07:32] LABS: BASO # 0.01 K/mm3 (0.0-2.0); BASO % 0.1 % (0.0-3.0); EOS # 0.2 (0.0-0.7); EOS % 1.7 % (1.5-5.0); GRAN # 8.75 (1.4-6.5); GRAN % 73.9 % (50.0-68.0); HEMOGLOBIN 9.8 g/dL (14.0-18.0); LYMPH # 1.9 (1.2-3.4); LYMPH % 15.7 % (22.0-35.0); MEAN CELL VOLUME 63.5 fl (80.0-105.0); MEAN CORPUSCULAR HEMOGLOBIN 18.1 pg (25.0-35.0); MEAN CORPUSCULAR HGB CONC 28.6 g/dl (31.0-37.0); MEAN PLATELET VOLUME 10.1 fl (7.0-11.0); MONO % 8.6 % (1.0-6.0); RBC 5.4 10^6/uL (3.5-6.1); RED CELL DISTRIBUTION WIDTH 18.8 % (11.5-14.5); WHITE BLOOD COUNT 11.8 10^3/ul (4.5-11.0)
[2018-03-04 07:41] LABS: ALBUMIN 3.6 g/dL (3.0-4.8); CALCIUM 8.4 mg/dL (8.4-10.5)
[2018-03-04 08:47] LABS: CREATININE, 24 HOUR URINE 2.35 g/24 h (0.63-2.50)
[2018-03-04] MEDS: Hydrocortisone 2.5% Rectal Cream(30 gm) PR SCH (09:23)
--- NOTE | 2018-03-04 11:00 | CP.PCM.PN ---
Subjective - Date & Time of Evaluation Date of Evaluation: 03/04/18 Time of Evaluation: 11:00 - Subjective Subjective: PGY-2 Nephrology Progress Note- Dr. Peace Patient seen and examined at bedside. Per nursing no acute events occurred overnight. Patient denies any chest pain, shortness of breath, fevers, chills, nausea, vomiting, changes in vision, or any other complaints. Patient was slightly agitated during examination and complete ROS was limited. Objective - Vital Signs/Intake and Output Vital Signs (last 24 hours): Temp Pulse Resp BP Pulse Ox 99 F 82 20 134/79 100 03/04/18 06:00 03/04/18 09:22 03/04/18 06:00 03/04/18 09:23 03/04/18 06:00 Intake and Output: 03/04/18 03/04/18 06:59 18:59 Intake Total 800 Balance 800 - Medications Medications: Current Medications Atorvastatin Calcium (Lipitor) 10 mg PO DIN [facility] Last Admin: 03/03/18 18:29 Dose: 10 mg Carvedilol (Coreg) 12.5 mg PO BID [facility] Last Admin: 03/04/18 09:22 Dose: 12.5 mg Diazepam (Valium) 5 mg PO Q12 PRN; Protocol PRN Reason: Anxiety Last Admin: 03/04/18 09:33 Dose: 5 mg Digoxin (Digoxin) 0.125 mg PO MWF [facility] Last Admin: 03/03/18 10:16 Dose: 0.125 mg Ergocalciferol (Drisdol 50,000 Intl Units Cap) 1 cap PO Q7D [facility] Last Admin: 03/02/18 13:07 Dose: 1 cap Finasteride (Proscar) 5 mg PO DAILY [facility] Last Admin: 03/04/18 09:22 Dose: 5 mg Fluoxetine HCl (Prozac) 20 mg PO DAILY [facility] Last Admin: 03/04/18 09:21 Dose: 20 mg Furosemide (Lasix) 40 mg PO DAILY [facility] Hydralazine HCl (Apresoline) 10 mg PO QID PRN PRN Reason: for sbp >170 Hydralazine HCl (Apresoline) 25 mg PO BID [facility] Last Admin: 03/01/18 10:22 Dose: 25 mg Hydrocortisone (Anusol-Hc) 0 gm WI BID [facility] Last Admin: 03/04/18 09:23 Dose: 1 applic Iron Sucrose 100 mg/ Sodium (Chloride) 105 mls @ 210 mls/hr IVPB DAILY [facility] Stop: 03/05/18 10:29 Last Admin: 03/04/18 09:21 Dose: 210 mls/hr Lisinopril (Zestril) 10 mg PO DAILY [facility] Last Admin: 03/04/18 09:22 Dose: 10 mg Pantoprazole Sodium (Protonix Ec Tab) 40 mg PO 0600 [facility] Last Admin: 03/04/18 05:34 Dose: 40 mg Spironolactone (Aldactone) 25 mg PO DAILY [facility] Last Admin: 03/04/18 09:23 Dose: 25 mg Tamsulosin HCl (Flomax) 0.4 mg PO DAILY [facility] Last Admin: 03/04/18 09:21 Dose: 0.4 mg - Labs Labs: 03/04/18 07:00 03/04/18 07:00 PT 15.3 SECONDS (9.4-12.5) H 02/28/18 04:14 INR 1.33 02/28/18 04:14 - Head Exam Head Exam: ATRAUMATIC, NORMAL INSPECTION - Eye Exam Eye Exam: EOMI, Normal appearance, PERRL Pupil Exam: NORMAL ACCOMODATION - ENT Exam ENT Exam: Mucous Membranes Moist, Normal Exam - Neck Exam Neck Exam: Normal Inspection - Respiratory Exam Respiratory Exam: Rhonchi, NORMAL BREATHING PATTERN. absent: Prolonged Expiratory Phase - Cardiovascular Exam Cardiovascular Exam: +S1, +S2 - GI/Abdominal Exam GI & Abdominal Exam: Soft, Normal Bowel Sounds. absent: Rigid - Neurological Exam Neurological Exam: Alert, Awake, CN II-XII Intact - Psychiatric Exam Psychiatric exam: Depressed - Skin Skin Exam: Dry, Intact, Warm Assessment and Plan - Assessment and Plan (Free Text) Plan: Assessment and Plan (1) Acute kidney injury Assessment & Plan: DAVINA on CKD IIIA; pre-renal etiology,patient tolerating diet, will hold off on further IVF for now; -Diuretics Lasix 40mg PO Daily; -avoid nephrotoxic insults (NSAIDS, phosphate enema); -repeating urine lytes Nayeli: 9and UCr:81 Status: Acute (2) Congestive heart failure (CHF) Assessment & Plan: With systolic dysfunction; doesn't appear to be decompensation currently; CXR clear on presentation and patient currently asymptomatic, with no edema on exam; -continue to optimize CHF status with B-blockers, YURIDIA inhibitor;continue Diuretic; Status: Chronic (3) CKD (chronic kidney disease) stage 3, GFR 30-59 ml/min Assessment & Plan: Improving. Baseline serum creatinine appears to have been ~1.5 in 2016; very mild proteinuria; Serum immunofixation: negative for monoclonal proteins Remaining serologic workup sent as a precaution received in the laboratory. Will follow up with final results. Status: Chronic (4) Anemia Assessment & Plan: Mild anemia; some component of iron deficiency; started on IV iron loading Status: Acute (5) HTN (hypertension) Assessment & Plan: Hypertensive urgency on presentation, possibly due to drug withdrawal; BP currently controlled off anti-htn meds, continue to hold (except for low dose lisinopril); Status: Acute Dispo:Awaiting serologic workup results. DAVINA improving will continue to monitor. Plan discussed with Dr. Nata Blum, PGY-2
[2018-03-04 14:53] LABS: PROTEINASE-3 <1.0 AI (<1.0)
--- NOTE | 2018-03-04 21:29 | CP.PCM.DIS ---
<Terence Mendez - Last Filed: 03/04/18 21:26> Provider - Provider Date of Admission: 03/01/18 07:14 Attending physician: Daljit Bryan MD Primary care physician: NO FAMILY PROVIDER Consults: Nephrology -Nata Psychology - Jossy Cardiology - Kamran Time Spent in preparation of Discharge (in minutes): 40 Diagnosis - Discharge Diagnosis (1) Acute exacerbation of CHF (congestive heart failure) Status: Acute Priority: High (2) Congestive heart failure (CHF) Status: Chronic Priority: High (3) Hypertensive urgency Status: Resolved Priority: High (4) Acute kidney injury Status: Acute Priority: High (5) Urinary retention Status: Acute Priority: High (6) Mood disorder Status: Acute Priority: Medium (7) CKD (chronic kidney disease) stage 3, GFR 30-59 ml/min Status: Acute Priority: High (8) Anemia Status: Chronic Priority: Medium (9) Non-compliance Status: Acute Priority: High (10) Rectal pain, chronic Status: Acute Priority: Low Hospital Course - Lab Results Lab Results: Micro Results 03/04/18 00:30 Stool C. difficile Antigen & Toxin A,B (M - Final 03/02/18 12:11 Urine,Horton Urine Culture - Final No Growth (<1,000 CFU/ML) Most Recent Lab Values WBC 11.8 10^3/ul (4.5-11.0) H 03/04/18 07:00 RBC 5.40 10^6/uL (3.5-6.1) 03/04/18 07:00 Hgb 9.8 g/dL (14.0-18.0) L 03/04/18 07:00 Hct 34.3 % (42.0-52.0) L 03/04/18 07:00 MCV 63.5 fl (80.0-105.0) L 03/04/18 07:00 MCH 18.1 pg (25.0-35.0) L 03/04/18 07:00 MCHC 28.6 g/dl (31.0-37.0) L 03/04/18 07:00 RDW 18.8 % (11.5-14.5) H 03/04/18 07:00 Plt Count 462 10^3/uL (120.0-450.0) H 03/04/18 07:00 MPV 10.1 fl (7.0-11.0) 03/04/18 07:00 Gran % 73.9 % (50.0-68.0) H 03/04/18 07:00 Lymph % (Auto) 15.7 % (22.0-35.0) L 03/04/18 07:00 Mcculloch % (Auto) 8.6 % (1.0-6.0) H 03/04/18 07:00 Eos % (Auto) 1.7 % (1.5-5.0) 03/04/18 07:00 Baso % (Auto) 0.1 % (0.0-3.0) 03/04/18 07:00 Gran # 8.75 (1.4-6.5) H 03/04/18 07:00 Lymph # (Auto) 1.9 (1.2-3.4) 03/04/18 07:00 M[place]ulloch # (Auto) 1.0 (0.1-0.6) H 03/04/18 07:00 Eos # (Auto) 0.2 (0.0-0.7) 03/04/18 07:00 Baso # (Auto) 0.01 K/mm3 (0.0-2.0) 03/04/18 07:00 Neutrophils % (Manual) 73 % (50.0-70.0) H 02/28/18 04:19 Band Neutrophils % 2 % (0-2) 02/28/18 04:19 Lymphocytes % (Manual) 19 % (22.0-35.0) L 02/28/18 04:19 Monocytes % (Manual) 3 % (1.0-6.0) 02/28/18 04:19 Basophils % (Manual) 3 % (0.0-1.0) H 02/28/18 04:19 Platelet Evaluation Low (NORMAL) 02/28/18 04:19 Hypochromasia 2+ 02/28/18 04:19 Anisocytosis (manual) 1+ 02/28/18 04:19 Ovalocytes 1+ 02/28/18 04:19 Retic Count 1.94 % (0.5-1.5) H 02/28/18 06:00 PT 15.3 SECONDS (9.4-12.5) H 02/28/18 04:14 INR 1.33 02/28/18 04:14 D-Dimer, Quantitative 425 mg/L DDU (0-243) H 02/28/18 04:14 Sodium 140 mmol/L (132-148) 03/04/18 07:00 Potassium 3.8 mmol/L (3.6-5.0) 03/04/18 07:00 Chloride 102 mmol/L (98-107) 03/04/18 07:00 Carbon Dioxide 28 mmol/L (21-33) 03/04/18 07:00 Anion Gap 14 (10-20) 03/04/18 07:00 BUN 24 mg/dL (7-21) H 03/04/18 07:00 Creatinine 1.7 mg/dl (0.8-1.5) H 03/04/18 07:00 Est GFR ( Amer) 51 03/04/18 07:00 Est GFR (Non-Af Amer) 43 03/04/18 07:00 POC Glucose (mg/dL) 124 mg/dL (65-110) H 03/04/18 16:01 Random Glucose 106 mg/dL (70-110) 03/04/18 07:00 Hemoglobin A1c 6.1 % (4.2-6.5) 02/28/18 07:50 Calcium 8.4 mg/dL (8.4-10.5) 03/04/18 07:00 Phosphorus 2.7 mg/dL (2.5-4.5) 02/28/18 07:50 Magnesium 2.0 mg/dL (1.7-2.2) 02/28/18 07:50 Iron 24 ug/dL (45-180) L 02/28/18 04:19 TIBC 456 ug/dL (261-462) 02/28/18 04:19 % Saturation 5 % (20-55) L 02/28/18 04:19 Ferritin 9.3 ng/mL 02/28/18 04:19 Total Bilirubin 0.4 mg/dL (0.2-1.3) 03/04/18 07:00 AST 32 U/L (17-59) 03/04/18 07:00 ALT 27 U/L (7-56) 03/04/18 07:00 Alkaline Phosphatase 73 U/L (38-126) 03/04/18 07:00 Lactate Dehydrogenase 731 U/L (333-699) H 02/28/18 04:14 Total Creatine Kinase 514 U/L (35-230) H 02/28/18 04:14 CK-MB (CK-2) 5.0 ng/mL (0.0-3.6) H 02/28/18 04:14 CK-MB (CK-2) % 1.0 % (2.5-3.0) L 02/28/18 04:14 Troponin I 0.04 ng/mL D 02/28/18 07:50 NT-Pro-B Natriuret Pep 3710 pg/mL (0-450) H 02/28/18 04:14 Total Protein 7.2 g/dL (5.8-8.3) 03/04/18 07:00 Total Protein (PEP) 6.2 g/dL (6.1-8.1) 03/02/18 06:30 Albumin 3.6 g/dL (3.0-4.8) 03/04/18 07:00 Globulin 3.5 gm/dL 03/04/18 07:00 Albumin/Globulin Ratio 1.0 (1.1-1.8) L 03/04/18 07:00 Triglycerides 71 mg/dL (35-160) 02/28/18 04:19 Cholesterol 156 mg/dL (130-200) 02/28/18 04:19 LDL Cholesterol Direct 91 mg/dL (0-129) 02/28/18 04:19 HDL Cholesterol 35 mg/dL (29-60) 02/28/18 04:19 25-OH Vitamin D Total < 12.8 NG/ML (30.0-100.0) L 03/02/18 06:30 Procalcitonin 0.10 NG/ML (0.19-0.49) L 03/02/18 07:00 TSH 3rd Generation 2.31 mIU/mL (0.46-4.68) 03/01/18 07:50 PTH Intact Whole Molec 65 pg/mL (14-64) H 03/02/18 07:00 Urine Color Yellow (YELLOW) 03/02/18 12:11 Urine Appearance Clear (CLEAR) 03/02/18 12:11 Urine pH 6.0 (4.7-8.0) 03/02/18 12:11 Ur Specific [place] 1.020 (1.005-1.035) 03/02/18 12:11 Urine Protein 30 mg/dL (<30 mg/dL) H 03/02/18 12:11 Urine Glucose (UA) Negative mg/dL (NEGATIVE) 03/02/18 12:11 Urine Ketones Negative mg/dL (NEGATIVE) 03/02/18 12:11 Urine Blood Small (NEGATIVE) H 03/02/18 12:11 Urine Nitrate Negative (NEGATIVE) 03/02/18 12:11 Urine Bilirubin Negative (NEGATIVE) 03/02/18 12:11 Urine Urobilinogen 1.0 E.U./dL (<1 E.U./dL) H 03/02/18 12:11 Ur Leukocyte Esterase Trace Adela/uL (NEGATIVE) H 03/02/18 12:11 Urine RBC 2 - 5 /hpf (0-2) 03/02/18 12:11 Urine WBC 0 - 2 /hpf (0-6) 03/02/18 12:11 Ur Epithelial Cells 0 - 2 /hpf (0-5) 03/02/18 12:11 Urine Bacteria Neg (NEG) 03/02/18 12:11 Ur Random Creatinine 81 mg/dL 03/03/18 05:30 U Random Total Protein 192 mg/g creat (22-128) H 03/01/18 13:25 Ur Random Sodium 9 meq/L 03/03/18 05:30 Ur Random Urea Nitrogn 347 mg/dL 03/01/18 13:25 Urine Creatinine 1.52 g/L 03/02/18 00:00 Ur Creatinine 24 Hour 2.35 g/24 h (0.63-2.50) 03/02/18 00:00 Urine Total Volume 26.7 mg/dL 03/01/18 13:25 Microalb/Creat Ratio 71 (<30) H 03/01/18 13:25 Ur Total Protein 24 Hr 718 mg/24 h (<150) H 03/02/18 00:00 Protein/Creat Ratio 24h 305 mg/g creat (</=84) H 03/02/18 00:00 Urine Total Protein 463 mg/L (50-250) H 03/02/18 00:00 Digoxin 0.8 ng/mL (0.8-2.0) 03/04/18 07:00 Urine Opiates Screen Negative (NEGATIVE) 02/28/18 04:55 Urine Methadone Screen Negative (NEGATIVE) 02/28/18 04:55 Ur Barbiturates Screen Negative (NEGATIVE) 02/28/18 04:55 Ur Phencyclidine Scrn Negative (NEGATIVE) 02/28/18 04:55 Ur Amphetamines Screen Negative (NEGATIVE) 02/28/18 04:55 U Benzodiazepines Scrn Negative (NEGATIVE) 02/28/18 04:55 U Oth Cocaine Metabols Negative (NEGATIVE) 02/28/18 04:55 U Cannabinoids Screen Positive (NEGATIVE) H 02/28/18 04:55 Alcohol, Quantitative < 10 mg/dL (0-10) 02/28/18 04:14 Serum Immunofixation Not detected (Not Detected) 03/02/18 06:30 TAY Screen Negative (Negative) 03/02/18 06:30 TAY Titer TEST NOT PERFORMED 03/02/18 06:30 TAY Titer 2 TEST NOT PERFORMED 03/02/18 06:30 TAY Pattern TEST NOT PERFORMED 03/02/18 06:30 TAY Pattern 2 TEST NOT PERFORMED 03/02/18 06:30 Proteinase 3 (PR3) <1.0 AI (<1.0) 03/02/18 06:30 Myeloperoxidase Ab <1.0 AI (<1.0) 03/02/18 06:30 Glomerular Base Mem IgG <1.0 AI (<1.0) 03/02/18 06:30 Complement C3 79.0 mg/dL (88.0-165.0) L 03/02/18 06:30 Complement C4 21.3 mg/dL (14.0-44.0) 03/02/18 06:30 RPR Nonreactive (NONREACTIVE) 03/02/18 06:30 Hep Bs Antigen Negative (NEGATIVE) 03/02/18 06:30 Hepatitis C Antibody Negative (NEGATIVE) 03/02/18 06:30 HIV 1&2 Antibody Screen Negative (NEGATIVE) 03/02/18 06:30 - Hospital Course Hospital Course: Terence Mendez DO PGY1 Internal Medicine Field Placement Director - Hospital Discharge Summary 52 year old male with history of CHF, HTN, dilated cardiomyopathy, cardiac catheterization, COPD, substance abuse, medication noncompliance and renal insufficiency presented to [facility] [place] [place] ED on 02/28/18 with shortness of breath. Patient was found to have acute CHF exacerbation due to medication noncompliance. Upon admission, troponin was negative and BNP (3710) and D dimer was elevated as well as BP 213/113. In ED, EKG showed sinus tachycardia, and chest x-ray showed moderate cardiomegaly. Urine tox screen was positive for cannabinoids. DVT was ruled out with lower extremity ultrasound and lung scan nuclear medicine was negative for PE. patient subsequently started on Lasix, and hydralazine. Due to his cardiac history, echo was ordered and showed EF of 40% along with mild concentric left ventricular hypertrophy, global hypokinesis of the left ventricle and mild to moderate aortic regurgitation and pulmonary hypertension. Code margarita was called twice as the patient was agitated due to suprapubic pain in the setting of urinary retention, and left flank pain. Patient was given ativan 1 mg, and horton catheter was inserted. Cardiology service (Dr. Aceves) started continued the patient on lasix, and started milinrone drip, coreg, lisinopril spironolactone, and digoxin. Nephrology (Dr. Peace) was consulted due his to his rising BUN and creatinine levels. Renal ultrasound was ordered to rule out hydronephrosis but was unremarkable. Subsequently, patient was started on flomax and finasteride. Hospital course was complicated when patient developed acute kidney injury most likely due to diuresis; subsequently lasix, lisinopril and spironolactone were held and gentle IVF was started. Due to his substance abuse history, psychiatry (Dr. Tiwari) was consulted and diagnosed him with mood disorder most likely depression. Patient was started on ativan and prozac, and subsequently ativan was replaced w/ valium. The patient developed microcytic anemia due to iron deficiency so IV iron was given. The patient was restarted on his lasix by nephrology after his kidney function improved. Horton was removed, however voiding trial revealed patient was still retaining ~200- 300mls urine. Chest x-ray is clear and the patient is asymptomatic with no edema and lungs clear to auscultation b/l. The patient denied SHAN and inpatient psych admission. The patient is hemodynamically stable and clear for discharge. He denies any chest pain, SOB, fevers, chills, nausea, vomiting, or any other complaints. The patient was counseled to continue his medications due to his history of medication noncompliance. Morning of discharge patient was encouraged to participate in PT who recommended patient placement to home w/ family support. No other issues voiced at time of evaluation in morning. VSS; no issues reported overnight. Patient reported freely urinating however bladder scan still showing some retention. Patient was stable for discharge and following discharge instructions were provided: - You were admitted for worsening of your heart failure and high blood pressure due to not taking your medications - During your hospital course you had some kidney injury; and were found to have significant urinary retention - Please take all your medications as prescribed below - Please start taking: Atorvastatin/ Lipitor 10mg every day Carvedilol/ Coreg 12.5mg twice a day Digoxin 0.125 one tab every Saturday, Saturday, Saturday Ergocalciferol 50,000units 1 cap every WEEK Finasteride/ Proscar 5mg every day Fluoxetine/ Prozac 20mg every day Furosemide/ Lasix 40mg every day Lisinopril/ Zestril 10mg every day Tamsulosin/ Flomax 0.4mg 1 tab every day for 3 days followed by 2 tabs a day - Please catheterize yourself as needed when you start feeling urinary discomfort, suprapubic pain, - Please buy a scale and check our weight every day, and record your weights - Please buy a Blood pressure cuff and check your pressures every morning and evening; please record your blood pressures - If you have greater than 3 pound weight increase in a day please call your primary care doctor immediately - You stated your primary doctor is Dr. Benito, and that you have not seen him in over one year. Please follow up with him within 7 days of discharge - If you would not like to see Dr. Benito, please call the number on the back of your insurance card and arrange for a primary care doctor - If you would like to follow up with our clinic here please request for Wendy Yost MD as your new primary care doctor - You were started on a anti-depressant medication; this medication may cause side effect of suicidal ideations - Please get a complete blood count and basic metabolic panel within 7 days of discharge - Please follow up with Psychiatry Dr. Tiwari within 7 days of discharge - Please follow up with Cardiology Dominick Yung within 7 days of discharge - Please follow up with Nephrology Dr. Peace within 7 days of discharge - Please follow up with a Urologist Dr. Zepeda after discharge, a referral for one has been provided for you; or you can find one within your insurance network - Please follow up with a [facility] Dr. Mejia regarding Colonoscopy, a referral for one has been provided for you; or you can find one within your insurance network - If you experience any worsening of symptoms, suicidal ideation, or if any new concerning symptoms arise; please go to the nearest emergency department Patient is medically optimized for discharge at this time - Date & Time of H&P Date of H&P: 02/28/18 Time of H&P: 07:24 Discharge Exam - Head Exam Head Exam: ATRAUMATIC, NORMAL INSPECTION, NORMOCEPHALIC - Eye Exam Eye Exam: EOMI, PERRL. absent: Scleral icterus - ENT Exam ENT Exam: Mucous Membranes Moist Additional comments: Very poor oral dentition - Respiratory Exam Respiratory Exam: Clear to PA & Lateral, NORMAL BREATHING PATTERN, UNREMARKABLE. absent: Rhonchi, Wheezes, Respiratory Distress - Cardiovascular Exam Cardiovascular Exam: RRR, +S1, +S2. absent: Systolic Murmur - GI/Abdominal Exam GI & Abdominal Exam: Normal Bowel Sounds, Unremarkable. absent: Soft, Tenderness Additional comments: No suprapubic tenderness or flank pain noted on exam. - Rectal Exam Additional comments: Hemorrhoids present - Extremities Exam Additional comments: Pulses 2+ TP/DP BL No LE Edema - Back Exam Back exam: absent: CVA tenderness (L), CVA tenderness (R) - Neurological Exam Neurological exam: Alert, CN II-XII Intact - Psychiatric Exam Psychiatric exam: Flat Affect Additional comments: Patient withdrawn; refuses to make eye contact; difficult to interview. No suicidal ideation/ homicidal ideation reported. - Skin Skin Exam: Dry, Intact, Normal Color, Warm Discharge Plan - Discharge Medications Prescriptions: Atorvastatin [Lipitor] 10 mg PO DIN #30 tab Carvedilol [Coreg] 12.5 mg PO BID #60 tab diaZEpam [Valium] 5 mg PO Q12 PRN #10 tab PRN Reason: Agitation Digoxin 0.125 mg PO MWF #12 tab Ergocalciferol [Drisdol 50,000 Intl Units Cap] 1 cap PO Q7D #4 cap Finasteride [Proscar] 5 mg PO DAILY #30 tab FLUoxetine [Prozac] 20 mg PO DAILY #30 cap Furosemide [Lasix] 40 mg PO DAILY #30 tab Lisinopril [Zestril] 10 mg PO DAILY #30 tab Spironolactone [Aldactone] 25 mg PO DAILY #30 tab Tamsulosin [Flomax] 0.4 mg PO DAILY #3 cap Tamsulosin [Flomax] 0.4 mg PO BID #54 cap - Follow Up Plan Condition: FAIR Disposition: HOME/ ROUTINE Patient education suggested?: Yes Instructions: Heart Failure (ED) Additional Instructions: - You were admitted for worsening of your heart failure and high blood pressure due to not taking your medications - During your hospital course you had some kidney injury; and were found to have significant urinary retention - Please take all your medications as prescribed below - Please start taking: Atorvastatin/ Lipitor 10mg every day Carvedilol/ Coreg 12.5mg twice a day Digoxin 0.125 one tab every Saturday, Saturday, Saturday Ergocalciferol 50,000units 1 cap every WEEK Finasteride/ Proscar 5mg every day Fluoxetine/ Prozac 20mg every day Furosemide/ Lasix 40mg every day Lisinopril/ Zestril 10mg every day Tamsulosin/ Flomax 0.4mg 1 tab every day for 3 days followed by 2 tabs a day - Please catheterize yourself as needed when you start feeling urinary discomfort, suprapubic pain, - Please buy a scale and check our weight every day, and record your weights - Please buy a Blood pressure cuff and check your pressures every morning and evening; please record your blood pressures - If you have greater than 3 pound weight increase in a day please call your primary care doctor immediately - You stated your primary doctor is Dr. Benito, and that you have not seen him in over one year. Please follow up with him within 7 days of discharge - If you would not like to see Dr. Benito, please call the number on the back of your insurance card and arrange for a primary care doctor - If you would like to follow up with our clinic here please request for Wendy Yost MD as your new primary care doctor - You were started on a anti-depressant medication; this medication may cause side effect of suicidal ideations - Please get a complete blood count and basic metabolic panel within 7 days of discharge - Please follow up with Psychiatry Dr. Tiwari within 7 days of discharge - Please follow up with Cardiology Dominick Yung within 7 days of discharge - Please follow up with Nephrology Dr. Peace within 7 days of discharge - Please follow up with a Urologist Dr. Zepeda after discharge, a referral for one has been provided for you; or you can find one within your insurance network - Please follow up with a [facility] Dr. Mejia regarding Colonoscopy, a referral for one has been provided for you; or you can find one within your insurance network - If you experience any worsening of symptoms, suicidal ideation, or if any new concerning symptoms arise; please go to the nearest emergency department Referrals: Dominick Aceves MD [Staff Provider] - Elva Mejia MD [Medical Doctor] - Mal Suazo MD [Staff Provider] - Jean-Paul Peace MD [Staff Provider] - Bea Zepeda MD [Staff Provider] - <Daljit Bryan - Last Filed: 03/05/18 07:56> Provider - Provider Date of Admission: 03/01/18 07:14 Attending physician: Daljit Bryan MD Primary care physician: [facility] Hospital Course - Lab Results Lab Results: Micro Results 03/04/18 00:30 Stool C. difficile Antigen & Toxin A,B (M - Final 03/02/18 12:11 Urine,Horton Urine Culture - Final No Growth (<1,000 CFU/ML) Most Recent Lab Values WBC 11.8 10^3/ul (4.5-11.0) H 03/04/18 07:00 RBC 5.40 10^6/uL (3.5-6.1) 03/04/18 07:00 Hgb 9.8 g/dL (14.0-18.0) L 03/04/18 07:00 Hct 34.3 % (42.0-52.0) L 03/04/18 07:00 MCV 63.5 fl (80.0-105.0) L 03/04/18 07:00 MCH 18.1 pg (25.0-35.0) L 03/04/18 07:00 MCHC 28.6 g/dl (31.0-37.0) L 03/04/18 07:00 RDW 18.8 % (11.5-14.5) H 03/04/18 07:00 Plt Count 462 10^3/uL (120.0-450.0) H 03/04/18 07:00 MPV 10.1 fl (7.0-11.0) 03/04/18 07:00 Gran % 73.9 % (50.0-68.0) H 03/04/18 07:00 Lymph % (Auto) 15.7 % (22.0-35.0) L 03/04/18 07:00 Mcculloch % (Auto) 8.6 % (1.0-6.0) H 03/04/18 07:00 Eos % (Auto) 1.7 % (1.5-5.0) 03/04/18 07:00 Baso % (Auto) 0.1 % (0.0-3.0) 03/04/18 07:00 Gran # 8.75 (1.4-6.5) H 03/04/18 07:00 Lymph # (Auto) 1.9 (1.2-3.4) 03/04/18 07:00 [place]ulloch # (Auto) 1.0 (0.1-0.6) H 03/04/18 07:00 Eos # (Auto) 0.2 (0.0-0.7) 03/04/18 07:00 Baso # (Auto) 0.01 K/mm3 (0.0-2.0) 03/04/18 07:00 Neutrophils % (Manual) 73 % (50.0-70.0) H 02/28/18 04:19 Band Neutrophils % 2 % (0-2) 02/28/18 04:19 Lymphocytes % (Manual) 19 % (22.0-35.0) L 02/28/18 04:19 Monocytes % (Manual) 3 % (1.0-6.0) 02/28/18 04:19 Basophils % (Manual) 3 % (0.0-1.0) H 02/28/18 04:19 Platelet Evaluation Low (NORMAL) 02/28/18 04:19 Hypochromasia 2+ 02/28/18 04:19 Anisocytosis (manual) 1+ 02/28/18 04:19 Ovalocytes 1+ 02/28/18 04:19 Retic Count 1.94 % (0.5-1.5) H 02/28/18 06:00 PT 15.3 SECONDS (9.4-12.5) H 02/28/18 04:14 INR 1.33 02/28/18 04:14 D-Dimer, Quantitative 425 mg/L DDU (0-243) H 02/28/18 04:14 Sodium 140 mmol/L (132-148) 03/04/18 07:00 Potassium 3.8 mmol/L (3.6-5.0) 03/04/18 07:00 Chloride 102 mmol/L (98-107) 03/04/18 07:00 Carbon Dioxide 28 mmol/L (21-33) 03/04/18 07:00 Anion Gap 14 (10-20) 03/04/18 07:00 BUN 24 mg/dL (7-21) H 03/04/18 07:00 Creatinine 1.7 mg/dl (0.8-1.5) H 03/04/18 07:00 Est GFR ( Amer) 51 03/04/18 07:00 Est GFR (Non-Af Amer) 43 03/04/18 07:00 POC Glucose (mg/dL) 124 mg/dL (65-110) H 03/04/18 16:01 Random Glucose 106 mg/dL (70-110) 03/04/18 07:00 Hemoglobin A1c 6.1 % (4.2-6.5) 02/28/18 07:50 Calcium 8.4 mg/dL (8.4-10.5) 03/04/18 07:00 Phosphorus 2.7 mg/dL (2.5-4.5) 02/28/18 07:50 Magnesium 2.0 mg/dL (1.7-2.2) 02/28/18 07:50 Iron 24 ug/dL (45-180) L 02/28/18 04:19 TIBC 456 ug/dL (261-462) 02/28/18 04:19 % Saturation 5 % (20-55) L 02/28/18 04:19 Ferritin 9.3 ng/mL 02/28/18 04:19 Total Bilirubin 0.4 mg/dL (0.2-1.3) 03/04/18 07:00 AST 32 U/L (17-59) 03/04/18 07:00 ALT 27 U/L (7-56) 03/04/18 07:00 Alkaline Phosphatase 73 U/L (38-126) 03/04/18 07:00 Lactate Dehydrogenase 731 U/L (333-699) H 02/28/18 04:14 Total Creatine Kinase 514 U/L (35-230) H 02/28/18 04:14 CK-MB (CK-2) 5.0 ng/mL (0.0-3.6) H 02/28/18 04:14 CK-MB (CK-2) % 1.0 % (2.5-3.0) L 02/28/18 04:14 Troponin I 0.04 ng/mL D 02/28/18 07:50 NT-Pro-B Natriuret Pep 3710 pg/mL (0-450) H 02/28/18 04:14 Total Protein 7.2 g/dL (5.8-8.3) 03/04/18 07:00 Total Protein (PEP) 6.2 g/dL (6.1-8.1) 03/02/18 06:30 Albumin 3.6 g/dL (3.0-4.8) 03/04/18 07:00 Albumin (PEP) 3.0 g/dL (3.8-4.8) L 03/02/18 06:30 Globulin 3.5 gm/dL 03/04/18 07:00 Albumin/Globulin Ratio 1.0 (1.1-1.8) L 03/04/18 07:00 Vhrjx-2-Csuwrdupm 0.4 g/dL (0.2-0.3) H 03/02/18 06:30 Xmtre-8-Fzagttmzv 0.7 g/dL (0.5-0.9) 03/02/18 06:30 Rygn-3-Tvflsyfh 0.4 g/dL (0.4-0.6) 03/02/18 06:30 Aviq-0-Txxfwcsd 0.2 g/dL (0.2-0.5) 03/02/18 06:30 Gamma Globulins 1.5 g/dL (0.8-1.7) 03/02/18 06:30 Abnorm Protein Band 1 TEST NOT PERFORMED 03/02/18 06:30 Abnorm Protein Band 2 TEST NOT PERFORMED 03/02/18 06:30 Abnorm Protein Band 3 TEST NOT PERFORMED 03/02/18 06:30 Triglycerides 71 mg/dL (35-160) 02/28/18 04:19 Cholesterol 156 mg/dL (130-200) 02/28/18 04:19 LDL Cholesterol Direct 91 mg/dL (0-129) 02/28/18 04:19 HDL Cholesterol 35 mg/dL (29-60) 02/28/18 04:19 25-OH Vitamin D Total < 12.8 NG/ML (30.0-100.0) L 03/02/18 06:30 Procalcitonin 0.10 NG/ML (0.19-0.49) L 03/02/18 07:00 TSH 3rd Generation 2.31 mIU/mL (0.46-4.68) 03/01/18 07:50 PTH Intact Whole Molec 65 pg/mL (14-64) H 03/02/18 07:00 Urine Color Yellow (YELLOW) 03/02/18 12:11 Urine Appearance Clear (CLEAR) 03/02/18 12:11 Urine pH 6.0 (4.7-8.0) 03/02/18 12:11 Ur Specific [place] 1.020 (1.005-1.035) 03/02/18 12:11 Urine Protein 30 mg/dL (<30 mg/dL) H 03/02/18 12:11 Urine Glucose (UA) Negative mg/dL (NEGATIVE) 03/02/18 12:11 Urine Ketones Negative mg/dL (NEGATIVE) 03/02/18 12:11 Urine Blood Small (NEGATIVE) H 03/02/18 12:11 Urine Nitrate Negative (NEGATIVE) 03/02/18 12:11 Urine Bilirubin Negative (NEGATIVE) 03/02/18 12:11 Urine Urobilinogen 1.0 E.U./dL (<1 E.U./dL) H 03/02/18 12:11 Ur Leukocyte Esterase Trace Adela/uL (NEGATIVE) H 03/02/18 12:11 Urine RBC 2 - 5 /hpf (0-2) 03/02/18 12:11 Urine WBC 0 - 2 /hpf (0-6) 03/02/18 12:11 Ur Epithelial Cells 0 - 2 /hpf (0-5) 03/02/18 12:11 Urine Bacteria Neg (NEG) 03/02/18 12:11 Ur Random Creatinine 81 mg/dL 03/03/18 05:30 U Random Total Protein 192 mg/g creat (22-128) H 03/01/18 13:25 Ur Random Sodium 9 meq/L 03/03/18 05:30 Ur Random Urea Nitrogn 347 mg/dL 03/01/18 13:25 Urine Creatinine 1.52 g/L 03/02/18 00:00 Ur Creatinine 24 Hour 2.35 g/24 h (0.63-2.50) 03/02/18 00:00 Urine Total Volume 26.7 mg/dL 03/01/18 13:25 Microalb/Creat Ratio 71 (<30) H 03/01/18 13:25 Ur Total Protein 24 Hr 718 mg/24 h (<150) H 03/02/18 00:00 Protein/Creat Ratio 24h 305 mg/g creat (</=84) H 03/02/18 00:00 Urine Total Protein 463 mg/L (50-250) H 03/02/18 00:00 Digoxin 0.8 ng/mL (0.8-2.0) 03/04/18 07:00 Urine Opiates Screen Negative (NEGATIVE) 02/28/18 04:55 Urine Methadone Screen Negative (NEGATIVE) 02/28/18 04:55 Ur Barbiturates Screen Negative (NEGATIVE) 02/28/18 04:55 Ur Phencyclidine Scrn Negative (NEGATIVE) 02/28/18 04:55 Ur Amphetamines Screen Negative (NEGATIVE) 02/28/18 04:55 U Benzodiazepines Scrn Negative (NEGATIVE) 02/28/18 04:55 U Oth Cocaine Metabols Negative (NEGATIVE) 02/28/18 04:55 U Cannabinoids Screen Positive (NEGATIVE) H 02/28/18 04:55 Alcohol, Quantitative < 10 mg/dL (0-10) 02/28/18 04:14 BAYRON & SPEP Interp See note 03/02/18 06:30 Serum Immunofixation Not detected (Not Detected) 03/02/18 06:30 TAY Screen Negative (Negative) 03/02/18 06:30 TAY Titer TEST NOT PERFORMED 03/02/18 06:30 TAY Titer 2 TEST NOT PERFORMED 03/02/18:30 TAY Pattern TEST NOT PERFORMED 03/02/18:30 TAY Pattern 2 TEST NOT PERFORMED 03/02/18:30 Proteinase 3 (PR3) <1.0 AI (<1.0) 03/02/18:30 Myeloperoxidase Ab <1.0 AI (<1.0) 03/02/18:30 Glomerular Base Mem IgG <1.0 AI (<1.0) 03/02/18: Complement C3 79.0 mg/dL (88.0-165.0) L 03/02/18: Complement C4 21.3 mg/dL (14.0-44.0) 03/02/18: RPR Nonreactive (NONREACTIVE) 03/02/18:30 Hep Bs Antigen Negative (NEGATIVE) 03/02/18:30 Hepatitis C Antibody Negative (NEGATIVE) 03/02/18:30 HIV 1&2 Antibody Screen Negative (NEGATIVE) 03/02/18:30 Attending/Attestation - Attestation I have personally seen and examined this patient.: Yes I have fully participated in the care of the patient.: Yes I have reviewed all pertinent clinical information, including history, physical exam and plan: Yes Notes (Text): 03/05/18 07:53 52 year old male with past medical history of hypertension, systolic CHF, medication noncompliance and substance abuse who presented with shortness of breath. He was started on iv lasix and milrinone infusion for CHF exacerbation with improvement of symptoms. He then developed acute renal failure for which diuretics were held and he was started on iv fluids. He was being followed by nephrology and cardiology. His kidney function improved close to baseline. Patient was counselled on risks of continued substance abuse. He was counselled on medications and outpatient follow up compliance with at bedside. He was seen by PT who initially recommended SHAN. However patient refused. He is discharged home with family support and home services to be arranged. Follow up with pmd. Monitor renal function closely as outpatient. Follow up with nephrology and urology. Follow up with psychiatrist. Daljit Bryan MD Hospitalist.
[2018-03-04 21:31] LABS: ALPHA-1-GLOBULIN (PEP) 0.4 g/dL (0.2-0.3)
[2018-03-05 14:50] LABS: ANCA SCREEN NEGATIVE (NEGATIVE)
[2018-03-05 16:36] LABS: ALBUMIN 53.6 Relative %; ALPHA-1 GLOBULIN 4.4 Relative %
== END 2018-03-04 18:33 | disposition home or self-care (01) | DRG 291 ==
LOC: ED 03:58 → ERH 04:40 → 2RNO 09:22 → OBSVTOIN 03-01 07:14 → 5RNO 03-03 17:16
PROVIDERS: ADMIT Internal Medicine; ATTEND Internal Medicine
PROC: 0T9B70Z Drainage of Bladder with Drainage Device, Via Natural or Artificial Opening (ICD-10-PCS; principal; 2018-03-01)
DX: I13.0 Hypertensive heart and chronic kidney disease with heart failure and stage 1 through stage 4 chronic kidney disease, or unspecified chronic kidney disease (principal); I50.23 Acute on chronic systolic (congestive) heart failure; N17.9 Acute kidney failure, unspecified; K62.5 Hemorrhage of anus and rectum; F32.1 Major depressive disorder, single episode, moderate; N18.3 Chronic kidney disease, stage 3 (moderate); E11.22 Type 2 diabetes mellitus with diabetic chronic kidney disease; I16.0 Hypertensive urgency; I27.20 Pulmonary hypertension, unspecified; I42.0 Dilated cardiomyopathy; F41.1 Generalized anxiety disorder; G47.30 Sleep apnea, unspecified; I25.10 Atherosclerotic heart disease of native coronary artery without angina pectoris; D50.9 Iron deficiency anemia, unspecified; J44.9 Chronic obstructive pulmonary disease, unspecified; F12.10 Cannabis abuse, uncomplicated; F15.10 Other stimulant abuse, uncomplicated; N40.1 Benign prostatic hyperplasia with lower urinary tract symptoms; R33.8 Other retention of urine; K59.09 Other constipation; K64.9 Unspecified hemorrhoids; I08.1 Rheumatic disorders of both mitral and tricuspid valves; Z86.73 Personal history of transient ischemic attack (TIA), and cerebral infarction without residual deficits; Z91.14 Patient's other noncompliance with medication regimen; Z91.19 Patient's noncompliance with other medical treatment and regimen; Z87.891 Personal history of nicotine dependence